=== PATIENT | male | born 1960 | race African-American/Black ===

== ENCOUNTER 2018-06-29 18:52 | Inpatient (IN) | payer MEDICAID ==
[~2018-06-29] VITALS: Ht 172.7 cm; Wt 80.3 kg
[2018-06-30] MEDS ORDERED: LEVETIRACETAM 500MG PREMIX 100 ML IV ONE (03:00)
[2018-06-30] MEDS ORDERED: KETOROLAC 15MG/ML VIAL IV ONE (03:00)
[2018-06-30] MEDS ORDERED: SODIUM CHLORIDE 0.9% 1,000 ML IV ONE (03:00)
[2018-06-30 03:33] LABS: BASOPHILS % 1.6 % (0.0-2.0); EOSINOPHILS % 2.4 % (0.0-5.0); HEMOGLOBIN. 9.5 g/dL (14.0-18.0); LYMPHOCYTES % 57.6 % (20.0-50.0); MEAN CORPUSCULAR HEMOGLOBIN 27.1 pg (28.0-32.0); MEAN CORPUSCULAR VOLUME 85.6 fL (80.0-94.0); MONOCYTES % 10.9 % (2.0-8.0); NEUTROPHILS % 27.5 % (40.0-76.0); PLATELET 148 x1000/uL (130-400); RED CELL DISTRIBUTION WIDTH 22.4 % (11.6-14.6)
[2018-06-30 03:36] LABS: CHLORIDE 101 mEq/L (98-107)
[2018-06-30 03:40] LABS: PARTIAL THROMBOPLASTIN TIME 32.8 sec (23.4-31.0); PROTHROMBIN TIME 10.3 sec (9.1-11.1)
[2018-06-30 12:16] LABS: CLARITY URINE CLEAR (CLEAR); COLOR URINE YELLOW (YELLOW); KETONES URINE NEGATIVE (NEGATIVE); LEUKOCYTE ESTERASE URINE 1+ (NEGATIVE); NITRITE URINE POSITIVE (NEGATIVE); OCCULT BLOOD URINE NEGATIVE (NEGATIVE); PROTEIN URINE NEGATIVE (NEGATIVE); SPECIFIC GRAVITY URINE 1.014 (1.005-1.030)
[2018-06-30] MEDS ORDERED: CEFTRIAXONE 1 G PREMIX 50 ML IV ONE (18:15)
[2018-06-30] MEDS ORDERED: LORAZEPAM 2MG/ML CPJ IV ONE (18:15)
[2018-06-30] MEDS ORDERED: FOLIC ACID 1 MG, THIAMINE HCL 100 MG, MVI, ADULT NO.1 10 ML in DEXTROSE 5% WATER 1,000 ML IV ONE ×4 (18:15)
[2018-06-30] MEDS ORDERED: THIAMINE HCL 100MG TABLET PO NR (18:45)
[2018-06-30] MEDS ORDERED: ONDANSETRON HCL 4MG/2ML INJ IV PRN (18:45)
[2018-06-30] MEDS ORDERED: FOLIC ACID 1 MG, MVI, ADULT NO.1 10 ML in DEXTROSE 5% WATER 1,000 ML IV NR ×3 (18:45)
[2018-06-30] MEDS ORDERED: ACETAMINOPHEN 325MG TABLET PO PRN ×2 (18:45)
[2018-06-30] MEDS ORDERED: CLONIDINE 0.1MG TABLET PO PRN (18:45)
[2018-06-30] MEDS ORDERED: MAGNESIUM/ALUMINUM HYDROXIDE/SIMETHICONE 30ML UDC PO PRN (18:45)
[2018-06-30] MEDS ORDERED: DOCUSATE SODIUM 100MG CAPSULE PO PRN (18:45)
[2018-06-30] MEDS ORDERED: LEVOFLOXACIN 500MG PREMIX 100 ML IV SCH (18:45)
[2018-06-30 23:05] VITALS: BP 130/69
[2018-07-01] MEDS: DEXT 5%/0.45% NACL 1000ML 1,000 ML IV SCH ×2 (01:39→17:44)
[2018-07-01] MEDS ORDERED: ACET-2708 PO (03:58)
[2018-07-01 04:00] VITALS: BP 132/81
[2018-07-01] MEDS: LEVOFLOXACIN 500MG PREMIX 100 ML IV SCH (06:00)
[2018-07-01] MEDS: AMLODIPINE 10MG TABLET PO SCH (08:24)
[2018-07-01] MEDS: THIAMINE HCL 100MG TABLET PO SCH (08:24)
[2018-07-01] MEDS: FOLIC ACID 1MG TABLET PO SCH (08:24)
[2018-07-01] MEDS: MULTIVITAMINS,THER W-MINERALS TABLET PO SCH (08:24)
[2018-07-01 12:00] VITALS: BP 128/79
[2018-07-01] MEDS: CHLORDIAZEPOXIDE 5 MG CAPSULE PO SCH ×2 (14:35→21:02)
[2018-07-01 15:06] LABS: BASOPHILS % 0.3 % (0.0-2.0); EOSINOPHILS % 0.1 % (0.0-5.0); HEMATOCRIT. 28.1 % (42.0-52.0); HEMOGLOBIN. 9.3 g/dL (14.0-18.0); LYMPHOCYTES % 36.4 % (20.0-50.0); MEAN CORPUSCULAR HEMOGLOBIN 27.7 pg (28.0-32.0); MEAN CORPUSCULAR VOLUME 83.3 fL (80.0-94.0); MEAN PLATELET VOLUME 8.3 fl (7.4-10.4); MONOCYTES % 12.4 % (2.0-8.0); NEUTROPHILS % 50.8 % (40.0-76.0); PLATELET 98 x1000/uL (130-400); RED BLOOD CELL COUNT 3.37 mill/uL (4.7-6.1); RED CELL DISTRIBUTION WIDTH 22.6 % (11.6-14.6)
[2018-07-01 15:33] LABS: CHLORIDE 99 mEq/L (98-107)
[2018-07-01 15:59] LABS: PLATELET ESTIMATE DECREASED
[2018-07-01 16:00] VITALS: BP 131/68
[2018-07-01] MEDS ORDERED: POTASSIUM CHLORIDE 20MEQ TABLET SR PO NR (19:11)
[2018-07-01 20:00] VITALS: BP 97/64
[2018-07-01] MEDS: LORAZEPAM 2MG/ML CPJ IV PRN (20:29)
[2018-07-02] MEDS: LORAZEPAM 2MG/ML CPJ IV PRN ×4 (00:23→19:33)
[2018-07-02 00:49] VITALS: BP 116/62
[2018-07-02] MEDS: DEXT 5%/0.45% NACL 1000ML 1,000 ML IV SCH ×2 (01:32→20:07)
[2018-07-02 04:00] VITALS: BP 120/66
[2018-07-02] MEDS: CHLORDIAZEPOXIDE 5 MG CAPSULE PO SCH ×4 (05:30→21:00)
[2018-07-02] MEDS: LEVOFLOXACIN 500MG PREMIX 100 ML IV SCH (05:34)
[2018-07-02] MEDS ORDERED: POTASSIUM CHLORIDE 20MEQ TABLET SR PO SCH (09:45)
[2018-07-02] MEDS: AMLODIPINE 10MG TABLET PO SCH (09:52)
[2018-07-02] MEDS: MULTIVITAMINS,THER W-MINERALS TABLET PO SCH (09:53)
[2018-07-02] MEDS: THIAMINE HCL 100MG TABLET PO SCH (09:53)
[2018-07-02] MEDS: FOLIC ACID 1MG TABLET PO SCH (09:53)
[2018-07-02 12:00] VITALS: BP 121/73
[2018-07-02 16:00] VITALS: BP 118/79
[2018-07-02 20:00] VITALS: BP 127/83
[2018-07-02] MEDS: HALOPERIDOL LACTATE 5MG/ML VIAL IM PRN (20:07)
[2018-07-02 22:42] VITALS: BP 127/83
[2018-07-03] VITALS: BP 120/73
[2018-07-03] MEDS: LORAZEPAM 2MG/ML CPJ IV PRN (00:12)
[2018-07-03 04:00] VITALS: BP 124/85
[2018-07-03] MEDS: LEVOFLOXACIN 500MG PREMIX 100 ML IV SCH (05:20)
[2018-07-03] MEDS: CHLORDIAZEPOXIDE 5 MG CAPSULE PO SCH ×3 (06:00→21:41)
[2018-07-03 08:00] VITALS: BP 124/83
[2018-07-03] MEDS: FOLIC ACID 1MG TABLET PO SCH (09:48)
[2018-07-03] MEDS: THIAMINE HCL 100MG TABLET PO SCH (09:49)
[2018-07-03] MEDS: MULTIVITAMINS,THER W-MINERALS TABLET PO SCH (09:49)
[2018-07-03] MEDS: AMLODIPINE 10MG TABLET PO SCH (09:49)
[2018-07-03 12:00] VITALS: BP 118/74
[2018-07-03] MEDS: DEXT 5%/0.45% NACL 1000ML 1,000 ML IV SCH (12:00)
[2018-07-03 16:00] VITALS: BP 116/51
[2018-07-03 20:00] VITALS: BP 100/68
[2018-07-04] VITALS: BP 110/65
[2018-07-04] MEDS: LEVOFLOXACIN 500MG PREMIX 100 ML IV SCH (05:28)
[2018-07-04] MEDS: CHLORDIAZEPOXIDE 5 MG CAPSULE PO SCH ×3 (05:49→22:16)
[2018-07-04 08:00] VITALS: BP 121/78
[2018-07-04] MEDS: THIAMINE HCL 100MG TABLET PO SCH (09:38)
[2018-07-04] MEDS: AMLODIPINE 10MG TABLET PO SCH (09:39)
[2018-07-04] MEDS: MULTIVITAMINS,THER W-MINERALS TABLET PO SCH (09:39)
[2018-07-04] MEDS: FOLIC ACID 1MG TABLET PO SCH (09:39)
[2018-07-04] MEDS: DEXT 5%/0.45% NACL 1000ML 1,000 ML IV SCH ×2 (09:39→23:20)
[2018-07-04 12:00] VITALS: BP 120/63
[2018-07-04] MEDS: LORAZEPAM 2MG/ML CPJ IV PRN (15:00)
[2018-07-04 16:00] VITALS: BP 104/63
[2018-07-04] MEDS: HALOPERIDOL LACTATE 5MG/ML VIAL IM PRN (16:43)
[2018-07-04] MEDS ORDERED: HALOPERIDOL LACTATE 5MG/ML VIAL IM PRN (17:45)
[2018-07-04] MEDS ORDERED: LORAZEPAM 2MG/ML CPJ IV PRN (17:45)
[2018-07-05] VITALS: BP 147/77
[2018-07-05] MEDS: LEVOFLOXACIN 500MG TABLET PO SCH (06:40)
[2018-07-05] MEDS: LORAZEPAM 2MG/ML CPJ IV PRN ×2 (06:40→11:41)
[2018-07-05] MEDS: CHLORDIAZEPOXIDE 5 MG CAPSULE PO SCH ×3 (06:40→21:28)
[2018-07-05] MEDS: DEXT 5%/0.45% NACL 1000ML 1,000 ML IV SCH (07:14)
[2018-07-05 08:00] VITALS: BP 118/73
[2018-07-05] MEDS: THIAMINE HCL 100MG TABLET PO SCH (09:37)
[2018-07-05] MEDS: AMLODIPINE 10MG TABLET PO SCH (09:37)
[2018-07-05] MEDS: MULTIVITAMINS,THER W-MINERALS TABLET PO SCH (09:37)
[2018-07-05] MEDS: FOLIC ACID 1MG TABLET PO SCH (09:37)
[2018-07-05 12:00] VITALS: BP 108/75
[2018-07-05 16:00] VITALS: BP 110/79
[2018-07-05 20:00] VITALS: BP 112/72
[2018-07-06] VITALS: BP 118/79
[2018-07-06] MEDS: DEXT 5%/0.45% NACL 1000ML 1,000 ML IV SCH ×2 (02:00→15:20)
[2018-07-06 04:00] VITALS: BP 103/63
[2018-07-06] MEDS: CHLORDIAZEPOXIDE 5 MG CAPSULE PO SCH ×3 (05:57→22:32)
[2018-07-06] MEDS: LEVOFLOXACIN 500MG TABLET PO SCH (05:57)
[2018-07-06 08:00] VITALS: BP 120/79
[2018-07-06] MEDS: FOLIC ACID 1MG TABLET PO SCH (11:49)
[2018-07-06] MEDS: MULTIVITAMINS,THER W-MINERALS TABLET PO SCH (11:49)
[2018-07-06] MEDS: AMLODIPINE 10MG TABLET PO SCH (11:49)
[2018-07-06] MEDS: THIAMINE HCL 100MG TABLET PO SCH (11:49)
[2018-07-06 12:00] VITALS: BP 98/53
[2018-07-06 16:00] VITALS: BP 120/79
[2018-07-06 20:58] VITALS: BP 110/73
[2018-07-06] MEDS: LORAZEPAM 2MG/ML CPJ IV PRN (22:32)
[2018-07-07] VITALS: BP 135/81
[2018-07-07] MEDS: CHLORDIAZEPOXIDE 5 MG CAPSULE PO SCH ×3 (06:20→22:33)
[2018-07-07] MEDS: LEVOFLOXACIN 500MG TABLET PO SCH (06:20)
[2018-07-07] MEDS: DEXT 5%/0.45% NACL 1000ML 1,000 ML IV SCH ×2 (06:24→18:00)
[2018-07-07 08:00] VITALS: BP 94/66
[2018-07-07] MEDS: MULTIVITAMINS,THER W-MINERALS TABLET PO SCH (09:00)
[2018-07-07] MEDS: FOLIC ACID 1MG TABLET PO SCH (09:00)
[2018-07-07] MEDS: THIAMINE HCL 100MG TABLET PO SCH (09:00)
[2018-07-07] MEDS: AMLODIPINE 10MG TABLET PO SCH (09:00)
[2018-07-07 12:00] VITALS: BP 106/65
[2018-07-07 16:00] VITALS: BP 126/66
[2018-07-07 20:00] VITALS: BP 114/60
[2018-07-08] VITALS: BP 118/68
[2018-07-08 04:00] VITALS: BP 125/74
[2018-07-08] MEDS: LEVOFLOXACIN 500MG TABLET PO SCH (06:17)
[2018-07-08] MEDS: CHLORDIAZEPOXIDE 5 MG CAPSULE PO SCH ×3 (06:17→22:43)
[2018-07-08] MEDS: DEXT 5%/0.45% NACL 1000ML 1,000 ML IV SCH ×2 (07:20→20:40)
[2018-07-08] MEDS: FOLIC ACID 1MG TABLET PO SCH (08:20)
[2018-07-08] MEDS: MULTIVITAMINS,THER W-MINERALS TABLET PO SCH (08:20)
[2018-07-08] MEDS: THIAMINE HCL 100MG TABLET PO SCH (08:20)
[2018-07-08] MEDS: AMLODIPINE 10MG TABLET PO SCH (08:20)
[2018-07-08 12:00] VITALS: BP 99/56
[2018-07-08 16:00] VITALS: BP 101/61
[2018-07-08 20:00] VITALS: BP 100/61
[2018-07-09] VITALS: BP 136/81
[2018-07-09 04:00] VITALS: BP 128/70
[2018-07-09] MEDS: CHLORDIAZEPOXIDE 5 MG CAPSULE PO SCH (05:51)
[2018-07-09] MEDS: THIAMINE HCL 100MG TABLET PO SCH (08:55)
[2018-07-09] MEDS: MULTIVITAMINS,THER W-MINERALS TABLET PO SCH (08:55)
[2018-07-09] MEDS: FOLIC ACID 1MG TABLET PO SCH (08:55)
[2018-07-09] MEDS: AMLODIPINE 10MG TABLET PO SCH (08:56)
[2018-07-09] MEDS: DEXT 5%/0.45% NACL 1000ML 1,000 ML IV SCH (10:00)
[2018-07-09 12:00] VITALS: BP 112/69
[2018-07-09 13:27] VITALS: BP 130/65
== END 2018-07-09 13:55 | disposition home or self-care (01) | DRG 53 ==
LOC: ER 19:04 → 7WST 06-30 18:39 → EDBEDREQTM 06-30 18:42 → EDBEDREQ 06-30 18:42 → ENRESERV 06-30 20:15
PROVIDERS: ADMIT Hospitalist; ATTEND Hospitalist
DX: G40.909 Epilepsy, unspecified, not intractable, without status epilepticus (principal); F10.239 Alcohol dependence with withdrawal, unspecified; N39.0 Urinary tract infection, site not specified; F17.210 Nicotine dependence, cigarettes, uncomplicated; Z59.0 Homelessness; Z71.6 Tobacco abuse counseling; Z79.899 Other long term (current) drug therapy
CPT/HCPCS: 36415; 71045; 82962; 84484; 87077; 87186; 93005; 93970; 96365; 96367; 96375; 97116; 97162; 97166; 99284; 99285; C1893; G0482; J0696; J1630; J1885; J1953; J1956; J2060; J3411; J3490; J7030; J7070

== ENCOUNTER 2022-09-30 16:13 | Inpatient (IN) | payer MEDICAID ==
[~2022-09-30] VITALS: Ht 177.8 cm; Wt 86.2 kg
[~2022-09-30 16:13] MED LIST: ACET-2708 PO
[2022-09-30 21:25] LABS: CHLORIDE 111 mEq/L (98-107)
[2022-09-30 21:27] LABS: BASOPHILS % 0.5 % (0.0-2.0); EOSINOPHILS % 2.4 % (0.0-5.0); HEMATOCRIT. 29.7 % (42.0-52.0); HEMOGLOBIN. 9.4 g/dL (14.0-18.0); LYMPHOCYTES % 12.3 % (20.0-50.0); MEAN CORPUSCULAR HEMOGLOBIN 29.7 pg (28.0-32.0); MEAN PLATELET VOLUME 10.4 fl (7.4-10.4); MONOCYTES % 4.3 % (2.0-8.0); NEUTROPHILS % 80.5 % (40.0-76.0); PLATELET 82 x1000/uL (130-400); RED BLOOD CELL COUNT 3.16 mill/uL (4.7-6.1); RED CELL DISTRIBUTION WIDTH 22.4 % (11.6-14.6)
[2022-09-30 21:36] LABS: ETHANOL BLOOD < 10 mg/dL
[2022-09-30 21:51] LABS: PLATELET ESTIMATE DECREASED
[2022-09-30] MEDS ORDERED: DEXTROSE 50% WATER 50ML SYRINGE IV ONE (22:15)
[2022-09-30] MEDS ORDERED: SODIUM CHLORIDE 0.9% 1,000 ML IV ONE (22:15)
[2022-09-30] MEDS ORDERED: METHYLPREDNISOLONE SOD SUCC 125 MG/2 ML VIAL IV ONE (22:45)
[2022-09-30] MEDS ORDERED: IPRATROPIUM/ALBUTEROL 0.5-3(2.5)MG/3ML NEB HHN ONE (22:45)
[2022-09-30] MEDS ORDERED: MORPHINE SULFATE 2 MG/ML CPJ (NOT FOR IM USE) IV ONE (23:00)
[2022-09-30] MEDS ORDERED: KETOROLAC 30MG/ML VIAL IV ONE (23:00)
[2022-09-30] MEDS ORDERED: AMOXICILLIN/POTASSIUM CLAVULANATE 875/125MG TAB PO ONE (23:15)
[2022-09-30] MEDS ORDERED: AZITHROMYCIN 500 MG TABLET PO ONE (23:15)
[2022-09-30 23:44] LABS: CLARITY URINE CLOUDY (CLEAR); COLOR URINE DARK YELLOW (YELLOW); KETONES URINE TRACE (NEGATIVE); LEUKOCYTE ESTERASE URINE 1+ (NEGATIVE); NITRITE URINE POSITIVE (NEGATIVE); OCCULT BLOOD URINE NEGATIVE (NEGATIVE); PROTEIN URINE 1+ (NEGATIVE); SPECIFIC GRAVITY URINE 1.022 (1.005-1.030)
[2022-09-30 23:53] LABS: *AMPHETAMINES SCREEN URINE NEGATIVE (NEGATIVE); *BARBITURATES SCREEN URINE NEGATIVE (NEGATIVE); *BENZODIAZEPINES SCREEN URINE NEGATIVE (NEGATIVE); *COCAINE SCREEN URINE NEGATIVE (NEGATIVE); CANNABINOID URINE SCREEN NEGATIVE (NEGATIVE); METHADONE URINE SCREEN NEGATIVE (NEGATIVE); OPIATES URINE SCREEN NEGATIVE (NEGATIVE); PHENCYCLIDINE URINE SCREEN NEGATIVE (NEGATIVE)
[2022-10-01] VITALS (69 sets, daily range): BP systolic 39–204; BP diastolic 25–132
[2022-10-01] MEDS ORDERED: CEFTRIAXONE 1GM PREMIX 50 ML IV ONE (00:15)
[2022-10-01] MEDS ORDERED: SODIUM CHLORIDE 0.9% 1,000 ML IV ONE (01:30)
[2022-10-01 01:34] LABS: CREATINE KINASE 562 IU/L (39-308)
[2022-10-01] MEDS ORDERED: NOREPINEPHRINE 8MG/250ML PMX 242 ML IV PRN (02:00)
[2022-10-01 07:41] LABS: BG BASE EXCESS -11.9 mmol/L (-2.0-2.0); BG CARBOXYHEMOGLOBIN 0.4 % (0.5-1.5); BG DEOXYHEMOGLOBIN 26.2 % (0.0-5.0); BG FRACTION INSPIRED OXYGEN 36; BG HCO3 ACT 16.4 mmol/L (22.0-26.0); BG METHEMOGLOBIN 0.3 % (0.0-1.5); BG OXYGEN SATURATION 73.6 % (92.0-98.5); BG OXYHEMOGLOBIN 73.1 % (94.0-97.0); BG PCO2 47.9 mmHg (35.0-45.0); BG PH 7.153 (7.350-7.450); BG PO2 49.8 mmHg (75.0-100.0); BG SAMPLE SITE RIGHT RADIAL; BG TOTAL HEMOGLOBIN 10.3 g/dL (12.0-18.0); BG VENT MODE NASAL CANNULA
[2022-10-01] MEDS: DOPAMINE 800MG PREMIX (DOUBLE) 250 ML IV PRN (08:24)
[2022-10-01] MEDS ORDERED: FENTANYL CITRATE/PF 2,500 MCG in SODIUM CHLORIDE 0.9% 200 ML IV PRN (08:30)
[2022-10-01] MEDS: NOREPINEPHRINE 8 MG in DEXT 5% WATER 242 ML IV PRN (08:43)
[2022-10-01] MEDS: FENTANYL 2500MCG/250ML PMX 250 ML IV PRN (08:43)
[2022-10-01] MEDS ORDERED: SODIUM CHLORIDE 0.45% 1,000 ML IV SCH (09:15)
[2022-10-01] MEDS ORDERED: CEFEPIME 1,000 MG in DEXTROSE 5% WATER 50 ML IV SCH (09:15)
[2022-10-01 09:27] LABS: BG BASE EXCESS -12.1 mmol/L (-2.0-2.0); BG CARBOXYHEMOGLOBIN 0.1 % (0.5-1.5); BG DEOXYHEMOGLOBIN 0.3 % (0.0-5.0); BG FRACTION INSPIRED OXYGEN 100; BG HCO3 ACT 16.4 mmol/L (22.0-26.0); BG METHEMOGLOBIN 0.3 % (0.0-1.5); BG OXYGEN SATURATION 99.7 % (92.0-98.5); BG OXYHEMOGLOBIN 99.3 % (94.0-97.0); BG PCO2 48.9 mmHg (35.0-45.0); BG PH 7.144 (7.350-7.450); BG PO2 353.2 mmHg (75.0-100.0); BG SAMPLE SITE RIGHT RADIAL; BG TOTAL HEMOGLOBIN 10.1 g/dL (12.0-18.0); BG VENT MODE VENT - AC
[2022-10-01] MEDS ORDERED: IPRATROPIUM/ALBUTEROL 0.5-3(2.5)MG/3ML NEB HHN PRN (09:30)
[2022-10-01] MEDS ORDERED: CLONIDINE 0.1MG TABLET PO PRN (09:30)
[2022-10-01] MEDS ORDERED: ACETAMINOPHEN 650MG/20.3ML UDC GT PRN (09:30)
[2022-10-01] MEDS ORDERED: ONDANSETRON HCL 4MG/2ML INJ IV PRN (09:30)
[2022-10-01] MEDS: PANTOPRAZOLE SODIUM 40 MG/VIAL IV SCH (09:30)
[2022-10-01] MEDS ORDERED: SODIUM CHLORIDE 0.9% 1,000 ML IV SCH (09:30)
[2022-10-01 09:59] LABS: INR 1.2; PROTHROMBIN TIME 12.5 sec (9.6-11.0)
[2022-10-01 10:02] LABS: CHLORIDE 111 mEq/L (98-107); HEMATOCRIT. 28.6 % (42.0-52.0); HEMOGLOBIN. 9.1 g/dL (14.0-18.0); MEAN CORPUSCULAR HEMOGLOBIN 29.3 pg (28.0-32.0); MEAN CORPUSCULAR VOLUME 92.3 fL (80.0-94.0); MEAN PLATELET VOLUME 11.1 fl (7.4-10.4); PLATELET 89 x1000/uL (130-400)
[2022-10-01 10:17] LABS: AMYLASE 145 IU/L (25-115)
[2022-10-01 10:46] LABS: NUCLEATED RED BLOOD CELLS 2 /100 WBC
[2022-10-01 10:47] LABS: PLATELET ESTIMATE DECREASED
[2022-10-01] MEDS ORDERED: SODIUM BICARBONATE 50 MEQ in SODIUM CHLORIDE 0.45% 1,000 ML IV SCH (11:00)
[2022-10-01] MEDS: METRONIDAZOLE 500 MG PREMIX 100 ML IV SCH ×2 (11:00→18:16)
[2022-10-01] MEDS: CEFEPIME 2,000 MG in DEXT 5% WATER 100 ML IV SCH ×2 (11:00→18:15)
[2022-10-01] MEDS: THIAMINE HCL 100 MG in SODIUM CHLORIDE 0.9% 49 ML IV SCH (12:30)
[2022-10-01] MEDS ORDERED: PERMETHRIN 5% CREAM 60GM TOP SCH (12:30)
[2022-10-01] MEDS ORDERED: SODIUM BICARBONATE 8.4% 1 MEQ/ML 50ML SYR IV NR (12:45)
[2022-10-01] MEDS: BLOOD SUGAR DIAGNOSTIC STRIP TEST SCH ×3 (12:50→21:00)
[2022-10-01] MEDS: SODIUM BICARBONATE 150 MEQ in DEXTROSE 5% WATER 1,000 ML IV SCH (14:10)
[2022-10-01] MEDS: FOLIC ACID 1MG TABLET PO SCH (14:11)
[2022-10-01] MEDS: MULTIVITAMINS,THER W-MINERALS TABLET PO SCH (14:11)
[2022-10-01] MEDS: INSULIN LISPRO 100 UNITS/ML SUBCUT SCH ×3 (14:23→21:54)
[2022-10-01] MEDS: IPRATROPIUM/ALBUTEROL 0.5-3(2.5)MG/3ML NEB HHN SCH ×2 (14:38→19:45)
[2022-10-01 15:07] LABS: BG BASE EXCESS -7.6 mmol/L (-2.0-2.0); BG CARBOXYHEMOGLOBIN 0.9 % (0.5-1.5); BG DEOXYHEMOGLOBIN 4.9 % (0.0-5.0); BG HCO3 ACT 18.8 mmol/L (22.0-26.0); BG METHEMOGLOBIN 0.2 % (0.0-1.5); BG PCO2 41.5 mmHg (35.0-45.0); BG PH 7.273 (7.350-7.450); BG PO2 85.7 mmHg (75.0-100.0); BG SAMPLE SITE LEFT RADIAL; BG TOTAL HEMOGLOBIN 10.8 g/dL (12.0-18.0); BG VENT MODE VENT - AC
[2022-10-01] MEDS ORDERED: LEVETIRACETAM 500 MG in SODIUM CHLORIDE 0.9% 100 ML IV SCH (15:30)
[2022-10-01 16:54] LABS: FERRITIN 153 ng/mL (22-322)
[2022-10-01 16:54] LABS: T4 FREE 0.65 ng/dL (0.76-1.46)
[2022-10-01 17:05] LABS: HEPATITIS B SURFACE ANTIGEN NEGATIVE
[2022-10-01 17:07] LABS: VITAMIN B12 SERUM > 2000.0 pg/mL (211-911)
[2022-10-01] MEDS: LEVETIRACETAM 500MG PREMIX 100 ML IV SCH (18:16)
[2022-10-02] VITALS (92 sets, daily range): BP systolic 74–137; BP diastolic 43–101
[2022-10-02] MEDS: IPRATROPIUM/ALBUTEROL 0.5-3(2.5)MG/3ML NEB HHN SCH ×4 (01:55→21:08)
[2022-10-02] MEDS: SODIUM BICARBONATE 150 MEQ in DEXTROSE 5% WATER 1,000 ML IV SCH (01:58)
[2022-10-02] MEDS: METRONIDAZOLE 500 MG PREMIX 100 ML IV SCH ×3 (02:29→18:28)
[2022-10-02] MEDS: CEFEPIME 2,000 MG in DEXT 5% WATER 100 ML IV SCH ×3 (02:30→18:28)
[2022-10-02] MEDS: LEVETIRACETAM 500MG PREMIX 100 ML IV SCH ×2 (04:23→16:04)
[2022-10-02 05:40] LABS: CHLORIDE 109 mEq/L (98-107)
[2022-10-02 06:02] LABS: HEMATOCRIT. 25.9 % (42.0-52.0); HEMOGLOBIN. 8.4 g/dL (14.0-18.0); MEAN CORPUSCULAR HEMOGLOBIN 29.1 pg (28.0-32.0); MEAN CORPUSCULAR VOLUME 89.5 fL (80.0-94.0); MEAN PLATELET VOLUME 10.4 fl (7.4-10.4); PLATELET 58 x1000/uL (130-400); RED CELL DISTRIBUTION WIDTH 21.8 % (11.6-14.6)
[2022-10-02] MEDS ORDERED: POTASSIUM CHLORIDE 20MEQ/PACKET PO NR (08:15)
[2022-10-02] MEDS: INSULIN LISPRO 100 UNITS/ML SUBCUT SCH ×4 (08:20→21:00)
[2022-10-02] MEDS: BLOOD SUGAR DIAGNOSTIC STRIP TEST SCH ×4 (08:24→21:00)
[2022-10-02] MEDS: PANTOPRAZOLE SODIUM 40 MG/VIAL IV SCH (08:25)
[2022-10-02] MEDS: FOLIC ACID 1MG TABLET PO SCH (08:25)
[2022-10-02] MEDS: MULTIVITAMINS,THER W-MINERALS TABLET PO SCH (08:25)
[2022-10-02] MEDS: DEXT 5%/0.45% NACL 1000ML 1,000 ML IV SCH (08:26)
[2022-10-02] MEDS: THIAMINE HCL 100 MG in SODIUM CHLORIDE 0.9% 49 ML IV SCH (08:28)
[2022-10-02 08:30] LABS: BG BASE EXCESS 4.7 mmol/L (-2.0-2.0); BG CARBOXYHEMOGLOBIN 0.6 % (0.5-1.5); BG DEOXYHEMOGLOBIN 2.5 % (0.0-5.0); BG FRACTION INSPIRED OXYGEN 40; BG HCO3 ACT 29.1 mmol/L (22.0-26.0); BG METHEMOGLOBIN 0.4 % (0.0-1.5); BG OXYGEN SATURATION 97.5 % (92.0-98.5); BG OXYHEMOGLOBIN 96.5 % (94.0-97.0); BG PCO2 42.5 mmHg (35.0-45.0); BG PH 7.453 (7.350-7.450); BG PO2 97.9 mmHg (75.0-100.0); BG SAMPLE SITE RIGHT RADIAL; BG TOTAL HEMOGLOBIN 9.5 g/dL (12.0-18.0); BG VENT MODE VENT - AC
[2022-10-02 10:42] LABS: PHOSPHORUS 3.9 mg/dL (2.5-4.9)
[2022-10-02 11:28] LABS: NUCLEATED RED BLOOD CELLS 1 /100 WBC; PLATELET ESTIMATE DECREASED
[2022-10-02] MEDS: FENTANYL 2500MCG/250ML PMX 250 ML IV PRN (12:27)
[2022-10-02] MEDS: DOXYCYCLINE HYCLATE 100MG CAPSULE PO SCH (16:04)
[2022-10-02] MEDS: NOREPINEPHRINE 8 MG in DEXT 5% WATER 242 ML IV PRN (16:57)
[2022-10-02] MEDS: DOPAMINE 800MG PREMIX (DOUBLE) 250 ML IV PRN (16:58)
[2022-10-03] VITALS (58 sets, daily range): BP systolic 76–138; BP diastolic 22–83
[2022-10-03] MEDS: NOREPINEPHRINE 32 MG in DEXT 5% WATER 218 ML IV PRN ×2 (00:17→23:14)
[2022-10-03] MEDS: DEXT 5%/0.45% NACL 1000ML 1,000 ML IV SCH ×2 (00:17→18:12)
[2022-10-03] MEDS: IPRATROPIUM/ALBUTEROL 0.5-3(2.5)MG/3ML NEB HHN SCH ×4 (01:05→20:46)
[2022-10-03] MEDS: CEFEPIME 2,000 MG in DEXT 5% WATER 100 ML IV SCH ×3 (02:14→19:24)
[2022-10-03] MEDS: METRONIDAZOLE 500 MG PREMIX 100 ML IV SCH ×3 (02:14→19:24)
[2022-10-03] MEDS: LEVETIRACETAM 500MG PREMIX 100 ML IV SCH ×2 (04:24→17:10)
[2022-10-03] MEDS: BLOOD SUGAR DIAGNOSTIC STRIP TEST SCH ×4 (05:28→23:36)
[2022-10-03] MEDS: INSULIN LISPRO 100 UNITS/ML SUBCUT SCH ×4 (05:29→23:35)
[2022-10-03] MEDS: FENTANYL 2500MCG/250ML PMX 250 ML IV PRN (06:24)
[2022-10-03 07:22] LABS: BASOPHILS % 0.4 % (0.0-2.0); EOSINOPHILS % 1.3 % (0.0-5.0); HEMATOCRIT. 23.8 % (42.0-52.0); HEMOGLOBIN. 7.7 g/dL (14.0-18.0); LYMPHOCYTES % 10.5 % (20.0-50.0); MEAN CORPUSCULAR HEMOGLOBIN 29.1 pg (28.0-32.0); MEAN CORPUSCULAR VOLUME 89.7 fL (80.0-94.0); MEAN PLATELET VOLUME 10.8 fl (7.4-10.4); MONOCYTES % 4.4 % (2.0-8.0); NEUTROPHILS % 83.4 % (40.0-76.0); PLATELET 53 x1000/uL (130-400); RED BLOOD CELL COUNT 2.66 mill/uL (4.7-6.1); RED CELL DISTRIBUTION WIDTH 21.9 % (11.6-14.6)
[2022-10-03] MEDS ORDERED: FUROSEMIDE 40MG/4ML VIAL IVP NR (08:00)
[2022-10-03 08:08] LABS: HIV SCREEN 4G Non Reactive (Non Reactive)
[2022-10-03 08:08] LABS: ANTI-NUCLEAR ANTIBODIES DIRECT Negative (Negative)
[2022-10-03 09:07] LABS: BG BASE EXCESS 1.4 mmol/L (-2.0-2.0); BG CARBOXYHEMOGLOBIN 0.8 % (0.5-1.5); BG DEOXYHEMOGLOBIN 2.9 % (0.0-5.0); BG FRACTION INSPIRED OXYGEN 40; BG HCO3 ACT 26.8 mmol/L (22.0-26.0); BG METHEMOGLOBIN 0.3 % (0.0-1.5); BG OXYGEN SATURATION 97.1 % (92.0-98.5); BG PCO2 46.2 mmHg (35.0-45.0); BG PH 7.381 (7.350-7.450); BG PO2 96.5 mmHg (75.0-100.0); BG SAMPLE SITE RIGHT RADIAL; BG TOTAL HEMOGLOBIN 8.2 g/dL (12.0-18.0); BG VENT MODE VENT - AC
[2022-10-03] MEDS: MULTIVITAMINS,THER W-MINERALS TABLET PO SCH (09:11)
[2022-10-03] MEDS: DOXYCYCLINE HYCLATE 100MG CAPSULE PO SCH ×2 (09:11→17:11)
[2022-10-03] MEDS: PANTOT AC/MIN OIL/PET HY-PHL OINT (AQUAPHOR) TOP SCH (09:12)
[2022-10-03] MEDS: FOLIC ACID 1MG TABLET PO SCH (09:12)
[2022-10-03] MEDS: PANTOPRAZOLE SODIUM 40 MG/VIAL IV SCH (09:12)
[2022-10-03] MEDS: THIAMINE HCL 100 MG in SODIUM CHLORIDE 0.9% 49 ML IV SCH (09:12)
[2022-10-03] MEDS ORDERED: VANCOMYCIN 1,750 MG in DEXT 5% WATER 500 ML IV NR (13:00)
[2022-10-04] VITALS (92 sets, daily range): BP systolic 80–138; BP diastolic 42–104
[2022-10-04] MEDS: FENTANYL 2500MCG/250ML PMX 250 ML IV PRN (00:41)
[2022-10-04] MEDS: IPRATROPIUM/ALBUTEROL 0.5-3(2.5)MG/3ML NEB HHN SCH ×4 (02:11→20:08)
[2022-10-04] MEDS: METRONIDAZOLE 500 MG PREMIX 100 ML IV SCH ×3 (02:14→19:33)
[2022-10-04] MEDS: CEFEPIME 2,000 MG in DEXT 5% WATER 100 ML IV SCH ×3 (02:14→19:33)
[2022-10-04] MEDS ORDERED: PROPOFOL 10MG/ML 100ML 100 ML IV PRN (04:15)
[2022-10-04] MEDS: LEVETIRACETAM 500MG PREMIX 100 ML IV SCH ×2 (04:22→16:51)
[2022-10-04] MEDS: BLOOD SUGAR DIAGNOSTIC STRIP TEST SCH ×4 (05:38→23:19)
[2022-10-04] MEDS: INSULIN LISPRO 100 UNITS/ML SUBCUT SCH ×4 (06:00→23:19)
[2022-10-04 06:14] LABS: BASOPHILS % 0.4 % (0.0-2.0); EOSINOPHILS % 3.4 % (0.0-5.0); HEMATOCRIT. 22.2 % (42.0-52.0); HEMOGLOBIN. 7.4 g/dL (14.0-18.0); LYMPHOCYTES % 13.3 % (20.0-50.0); MEAN CORPUSCULAR HEMOGLOBIN 29.6 pg (28.0-32.0); MEAN CORPUSCULAR VOLUME 89.5 fL (80.0-94.0); MEAN PLATELET VOLUME 11.1 fl (7.4-10.4); MONOCYTES % 5.2 % (2.0-8.0); NEUTROPHILS % 77.7 % (40.0-76.0); RED BLOOD CELL COUNT 2.48 mill/uL (4.7-6.1); RED CELL DISTRIBUTION WIDTH 21.7 % (11.6-14.6)
[2022-10-04 06:56] LABS: PHOSPHORUS 3.2 mg/dL (2.5-4.9)
[2022-10-04 07:23] LABS: PLATELET 42 x1000/uL (130-400)
[2022-10-04] MEDS: MULTIVITAMINS,THER W-MINERALS TABLET PO SCH (08:24)
[2022-10-04] MEDS: PANTOT AC/MIN OIL/PET HY-PHL OINT (AQUAPHOR) TOP SCH (08:24)
[2022-10-04] MEDS: PANTOPRAZOLE SODIUM 40 MG/VIAL IV SCH (08:24)
[2022-10-04] MEDS: FOLIC ACID 1MG TABLET PO SCH (08:24)
[2022-10-04] MEDS: DOXYCYCLINE HYCLATE 100MG CAPSULE PO SCH ×2 (08:24→16:51)
[2022-10-04] MEDS: THIAMINE HCL 100 MG in SODIUM CHLORIDE 0.9% 49 ML IV SCH (08:24)
[2022-10-04 08:40] LABS: BG BASE EXCESS 3.2 mmol/L (-2.0-2.0); BG CARBOXYHEMOGLOBIN 1.3 % (0.5-1.5); BG DEOXYHEMOGLOBIN 1.7 % (0.0-5.0); BG FRACTION INSPIRED OXYGEN 35; BG HCO3 ACT 28.1 mmol/L (22.0-26.0); BG METHEMOGLOBIN 0.3 % (0.0-1.5); BG OXYGEN SATURATION 98.3 % (92.0-98.5); BG OXYHEMOGLOBIN 96.7 % (94.0-97.0); BG PCO2 44.7 mmHg (35.0-45.0); BG PH 7.416 (7.350-7.450); BG PO2 109.5 mmHg (75.0-100.0); BG SAMPLE SITE LEFT RADIAL; BG TOTAL HEMOGLOBIN 7.9 g/dL (12.0-18.0); BG TOTAL RESPIRATORY RATE 18 b/min; BG VENT MODE VENT - AC
[2022-10-04] MEDS: LORAZEPAM 2MG/ML CPJ IV PRN (08:45)
[2022-10-04] MEDS: DEXT 5%/0.45% NACL 1000ML 1,000 ML IV SCH (10:44)
[2022-10-04] MEDS ORDERED: BISACODYL 10MG SUPP PR NR (10:45)
[2022-10-04] MEDS ORDERED: LIDOCAINE HCL 1% 10 MG/ML 10ML VIAL ONE (10:46)
[2022-10-04] MEDS: DEXTROSE 50% WATER 50ML SYRINGE IV PRN ×2 (11:56→23:24)
[2022-10-04] MEDS: LACTULOSE 20G/30ML UDC PO SCH ×2 (14:16→21:57)
[2022-10-04 20:40] LABS: D-DIMER 3.59 mg/L FEU (<0.50); INR 1.2; PROTHROMBIN TIME 12.4 sec (9.6-11.0)
[2022-10-05] VITALS (95 sets, daily range): BP systolic 93–123; BP diastolic 49–81
[2022-10-05] MEDS: FENTANYL 2500MCG/250ML PMX 250 ML IV PRN (01:18)
[2022-10-05] MEDS: IPRATROPIUM/ALBUTEROL 0.5-3(2.5)MG/3ML NEB HHN SCH ×4 (01:20→20:51)
[2022-10-05] MEDS: CEFEPIME 2,000 MG in DEXT 5% WATER 100 ML IV SCH ×3 (03:08→18:19)
[2022-10-05] MEDS: METRONIDAZOLE 500 MG PREMIX 100 ML IV SCH ×3 (03:08→18:17)
[2022-10-05] MEDS: DEXT 5%/0.45% NACL 1000ML 1,000 ML IV SCH (03:08)
[2022-10-05] MEDS: BLOOD SUGAR DIAGNOSTIC STRIP TEST SCH ×4 (05:20→23:46)
[2022-10-05] MEDS: LACTULOSE 20G/30ML UDC PO SCH ×3 (05:39→21:59)
[2022-10-05] MEDS: LEVETIRACETAM 500MG PREMIX 100 ML IV SCH ×2 (05:39→17:05)
[2022-10-05] MEDS: INSULIN LISPRO 100 UNITS/ML SUBCUT SCH ×4 (06:00→23:46)
[2022-10-05 06:02] LABS: BASOPHILS % 0.5 % (0.0-2.0); EOSINOPHILS % 5.7 % (0.0-5.0); LYMPHOCYTES % 13.5 % (20.0-50.0); MEAN CORPUSCULAR HEMOGLOBIN 29.6 pg (28.0-32.0); MEAN CORPUSCULAR VOLUME 88.9 fL (80.0-94.0); MEAN PLATELET VOLUME 11.7 fl (7.4-10.4); MONOCYTES % 6.6 % (2.0-8.0); NEUTROPHILS % 73.7 % (40.0-76.0); RED BLOOD CELL COUNT 2.26 mill/uL (4.7-6.1); RED CELL DISTRIBUTION WIDTH 21.1 % (11.6-14.6)
[2022-10-05 06:15] LABS: PHOSPHORUS 3.3 mg/dL (2.5-4.9)
[2022-10-05 06:55] LABS: HEMOGLOBIN. 6.7 g/dL (14.0-18.0)
[2022-10-05 06:56] LABS: HEMATOCRIT. 20.1 % (42.0-52.0); PLATELET 32 x1000/uL (130-400)
[2022-10-05 08:36] LABS: BG BASE EXCESS 5.2 mmol/L (-2.0-2.0); BG CARBOXYHEMOGLOBIN 1.7 % (0.5-1.5); BG DEOXYHEMOGLOBIN 1.9 % (0.0-5.0); BG FRACTION INSPIRED OXYGEN 35; BG HCO3 ACT 30.3 mmol/L (22.0-26.0); BG METHEMOGLOBIN 0.7 % (0.0-1.5); BG OXYGEN SATURATION 98.1 % (92.0-98.5); BG OXYHEMOGLOBIN 95.7 % (94.0-97.0); BG PCO2 48.7 mmHg (35.0-45.0); BG PH 7.412 (7.350-7.450); BG PO2 106.6 mmHg (75.0-100.0); BG SAMPLE SITE RIGHT RADIAL; BG TOTAL HEMOGLOBIN 6.8 g/dL (12.0-18.0); BG VENT MODE VENT - AC
[2022-10-05] MEDS: MULTIVITAMINS,THER W-MINERALS TABLET PO SCH (09:25)
[2022-10-05] MEDS: DOXYCYCLINE HYCLATE 100MG CAPSULE PO SCH ×2 (09:25→17:05)
[2022-10-05] MEDS: FOLIC ACID 1MG TABLET PO SCH (09:25)
[2022-10-05] MEDS: PANTOPRAZOLE SODIUM 40 MG/VIAL IV SCH ×2 (09:25→21:10)
[2022-10-05] MEDS: THIAMINE HCL 100 MG in SODIUM CHLORIDE 0.9% 49 ML IV SCH (09:25)
[2022-10-05] MEDS: PANTOT AC/MIN OIL/PET HY-PHL OINT (AQUAPHOR) TOP SCH (09:26)
[2022-10-05] MEDS ORDERED: SODIUM CHLORIDE 0.45% 1,000 ML IV ONE (12:00)
[2022-10-05 18:53] LABS: HEMOGLOBIN 6.4 g/dL (14.0-18.0)
[2022-10-05 18:54] LABS: HEMATOCRIT 19.6 % (42.0-52.0)
[2022-10-05 22:17] LABS: HEMATOCRIT 21.2 % (42.0-52.0)
[2022-10-06] VITALS (69 sets, daily range): BP systolic 83–121; BP diastolic 52–89
[2022-10-06 00:53] LABS: HEMOGLOBIN 7.3 g/dL (14.0-18.0)
[2022-10-06] MEDS: CEFEPIME 2,000 MG in DEXT 5% WATER 100 ML IV SCH ×3 (02:11→19:00)
[2022-10-06] MEDS: IPRATROPIUM/ALBUTEROL 0.5-3(2.5)MG/3ML NEB HHN SCH ×3 (02:11→14:19)
[2022-10-06] MEDS: METRONIDAZOLE 500 MG PREMIX 100 ML IV SCH ×3 (02:11→19:00)
[2022-10-06] MEDS: FENTANYL 2500MCG/250ML PMX 250 ML IV PRN (02:12)
[2022-10-06 05:21] LABS: BASOPHILS % 0.4 % (0.0-2.0); EOSINOPHILS % 5.7 % (0.0-5.0); HEMATOCRIT. 21.6 % (42.0-52.0); HEMOGLOBIN. 7.2 g/dL (14.0-18.0); LYMPHOCYTES % 10.2 % (20.0-50.0); MEAN CORPUSCULAR HEMOGLOBIN 29.5 pg (28.0-32.0); MEAN PLATELET VOLUME 10.4 fl (7.4-10.4); MONOCYTES % 7.6 % (2.0-8.0); NEUTROPHILS % 76.1 % (40.0-76.0); RED BLOOD CELL COUNT 2.42 mill/uL (4.7-6.1); RED CELL DISTRIBUTION WIDTH 21.1 % (11.6-14.6)
[2022-10-06 05:34] LABS: PLATELET 29 x1000/uL (130-400)
[2022-10-06 05:35] LABS: CHLORIDE 108 mEq/L (98-107)
[2022-10-06] MEDS: BLOOD SUGAR DIAGNOSTIC STRIP TEST SCH ×3 (05:51→17:31)
[2022-10-06] MEDS: LEVETIRACETAM 500MG PREMIX 100 ML IV SCH ×2 (05:51→17:30)
[2022-10-06] MEDS: LACTULOSE 20G/30ML UDC PO SCH ×2 (05:51→14:09)
[2022-10-06 08:48] LABS: BG BASE EXCESS 1.8 mmol/L (-2.0-2.0); BG CARBOXYHEMOGLOBIN 1.2 % (0.5-1.5); BG DEOXYHEMOGLOBIN 2.2 % (0.0-5.0); BG FRACTION INSPIRED OXYGEN 35; BG HCO3 ACT 27.1 mmol/L (22.0-26.0); BG METHEMOGLOBIN 0.7 % (0.0-1.5); BG OXYGEN SATURATION 97.8 % (92.0-98.5); BG OXYHEMOGLOBIN 95.9 % (94.0-97.0); BG PCO2 46.8 mmHg (35.0-45.0); BG PH 7.381 (7.350-7.450); BG PO2 111.3 mmHg (75.0-100.0); BG SAMPLE SITE RIGHT RADIAL; BG TOTAL HEMOGLOBIN 6.6 g/dL (12.0-18.0); BG VENT MODE VENT - AC
[2022-10-06] MEDS: PANTOT AC/MIN OIL/PET HY-PHL OINT (AQUAPHOR) TOP SCH (08:57)
[2022-10-06] MEDS: FOLIC ACID 1MG TABLET PO SCH (08:57)
[2022-10-06] MEDS: DOXYCYCLINE HYCLATE 100MG CAPSULE PO SCH ×2 (08:57→17:30)
[2022-10-06] MEDS: PANTOPRAZOLE SODIUM 40 MG/VIAL IV SCH ×2 (08:57→21:49)
[2022-10-06] MEDS: MULTIVITAMINS,THER W-MINERALS TABLET PO SCH (08:57)
[2022-10-06] MEDS: INSULIN LISPRO 100 UNITS/ML SUBCUT SCH ×2 (12:00→17:31)
[2022-10-06 12:55] LABS: HEMATOCRIT 21.4 % (42.0-52.0); HEMOGLOBIN 7.1 g/dL (14.0-18.0)
[2022-10-06] MEDS ORDERED: IPRATROPIUM/ALBUTEROL 0.5-3(2.5)MG/3ML NEB ONE (14:14)
[2022-10-06 16:10] LABS: BG CARBOXYHEMOGLOBIN 0.5 % (0.5-1.5); BG DEOXYHEMOGLOBIN 7.7 % (0.0-5.0); BG FRACTION INSPIRED OXYGEN 30; BG HCO3 ACT 26.9 mmol/L (22.0-26.0); BG METHEMOGLOBIN 0.5 % (0.0-1.5); BG OXYGEN SATURATION 92.2 % (92.0-98.5); BG OXYHEMOGLOBIN 91.3 % (94.0-97.0); BG PCO2 43.5 mmHg (35.0-45.0); BG PEEP (cmH2O) 0 cmH2O; BG PH 7.409 (7.350-7.450); BG PO2 62.5 mmHg (75.0-100.0); BG SAMPLE SITE RIGHT RADIAL; BG TOTAL HEMOGLOBIN 8.1 g/dL (12.0-18.0); BG TOTAL RESPIRATORY RATE 14 b/min; BG VENT MODE VENT - CPAP
[2022-10-06] MEDS: DEXTROSE 50% WATER 50ML SYRINGE IV PRN (17:30)
[2022-10-06 20:49] LABS: HEMOGLOBIN 7.8 g/dL (14.0-18.0)
[2022-10-06] MEDS: LORAZEPAM 2MG/ML CPJ IV PRN (21:49)
[2022-10-07] VITALS (59 sets, daily range): BP systolic 82–144; BP diastolic 50–84
[2022-10-07] MEDS: DEXT 5%/0.9% NACL 1,000 ML IV SCH ×2 (00:01→11:15)
[2022-10-07] MEDS ORDERED: LORAZEPAM 2MG/ML CPJ IM PRN (00:45)
[2022-10-07] MEDS ORDERED: DIPHENHYDRAMINE 50MG/ML VIAL IM PRN (00:45)
[2022-10-07] MEDS: BLOOD SUGAR DIAGNOSTIC STRIP TEST SCH ×4 (00:51→17:52)
[2022-10-07 00:54] LABS: HEMATOCRIT 21.3 % (42.0-52.0); HEMOGLOBIN 7.2 g/dL (14.0-18.0)
[2022-10-07] MEDS: IPRATROPIUM/ALBUTEROL 0.5-3(2.5)MG/3ML NEB HHN SCH ×4 (02:53→20:49)
[2022-10-07] MEDS: CEFEPIME 2,000 MG in DEXT 5% WATER 100 ML IV SCH ×3 (03:00→18:07)
[2022-10-07] MEDS: METRONIDAZOLE 500 MG PREMIX 100 ML IV SCH ×3 (03:00→18:08)
[2022-10-07] MEDS: LEVETIRACETAM 500MG PREMIX 100 ML IV SCH ×2 (05:00→17:36)
[2022-10-07 05:32] LABS: BASOPHILS % 0.2 % (0.0-2.0); EOSINOPHILS % 6.9 % (0.0-5.0); INR 1.3; LYMPHOCYTES % 10.8 % (20.0-50.0); MEAN CORPUSCULAR HEMOGLOBIN 29.5 pg (28.0-32.0); MEAN CORPUSCULAR VOLUME 89.4 fL (80.0-94.0); MEAN PLATELET VOLUME 10.7 fl (7.4-10.4); MONOCYTES % 12.1 % (2.0-8.0); PROTHROMBIN TIME 13.3 sec (9.6-11.0); RED BLOOD CELL COUNT 2.33 mill/uL (4.7-6.1); RED CELL DISTRIBUTION WIDTH 21.2 % (11.6-14.6)
[2022-10-07 05:37] LABS: HEMOGLOBIN. 6.9 g/dL (14.0-18.0)
[2022-10-07 05:38] LABS: HEMATOCRIT. 20.8 % (42.0-52.0); PLATELET 29 x1000/uL (130-400)
[2022-10-07 05:43] LABS: CHLORIDE 112 mEq/L (98-107)
[2022-10-07] MEDS: INSULIN LISPRO 100 UNITS/ML SUBCUT SCH ×4 (06:00→17:52)
[2022-10-07] MEDS ORDERED: LIDOCAINE HCL 1% 30ML VIAL (10MG/ML) ONE (08:59)
[2022-10-07] MEDS: FOLIC ACID 1MG TABLET PO SCH (09:00)
[2022-10-07] MEDS: MULTIVITAMINS,THER W-MINERALS TABLET PO SCH (09:00)
[2022-10-07] MEDS: PANTOT AC/MIN OIL/PET HY-PHL OINT (AQUAPHOR) TOP SCH (09:00)
[2022-10-07] MEDS: DOXYCYCLINE HYCLATE 100MG CAPSULE PO SCH ×2 (09:00→17:00)
[2022-10-07 09:02] LABS: BG BASE EXCESS 0.5 mmol/L (-2.0-2.0); BG CARBOXYHEMOGLOBIN 1.4 % (0.5-1.5); BG DEOXYHEMOGLOBIN 2.3 % (0.0-5.0); BG FRACTION INSPIRED OXYGEN 30; BG METHEMOGLOBIN 0.3 % (0.0-1.5); BG OXYGEN SATURATION 97.7 % (92.0-98.5); BG PCO2 39.1 mmHg (35.0-45.0); BG PH 7.423 (7.350-7.450); BG SAMPLE SITE RIGHT RADIAL; BG TOTAL HEMOGLOBIN 7.5 g/dL (12.0-18.0); BG TOTAL RESPIRATORY RATE 17 b/min; BG VENT MODE VENT - AC
[2022-10-07] MEDS: DEXTROSE 50% WATER 50ML SYRINGE IV PRN (11:07)
[2022-10-07] MEDS: PANTOPRAZOLE SODIUM 40 MG/VIAL IV SCH ×2 (11:13→20:56)
[2022-10-07] MEDS: PROPOFOL 10MG/ML 100ML 100 ML IV PRN ×2 (11:20→17:36)
[2022-10-07 13:06] LABS: HEMATOCRIT 19.6 % (42.0-52.0); HEMOGLOBIN 6.4 g/dL (14.0-18.0)
[2022-10-07 19:51] LABS: HEMATOCRIT 21.2 % (42.0-52.0)
[2022-10-07 20:11] LABS: INR 1.3; PROTHROMBIN TIME 13.6 sec (9.6-11.0)
[2022-10-08] VITALS (40 sets, daily range): BP systolic 85–164; BP diastolic 53–127
[2022-10-08] MEDS: PROPOFOL 10MG/ML 100ML 100 ML IV PRN ×3 (01:20→09:39)
[2022-10-08] MEDS: IPRATROPIUM/ALBUTEROL 0.5-3(2.5)MG/3ML NEB HHN SCH ×4 (02:12→20:04)
[2022-10-08] MEDS: METRONIDAZOLE 500 MG PREMIX 100 ML IV SCH ×3 (03:10→18:19)
[2022-10-08] MEDS: CEFEPIME 2,000 MG in DEXT 5% WATER 100 ML IV SCH ×3 (03:10→18:19)
[2022-10-08] MEDS: BLOOD SUGAR DIAGNOSTIC STRIP TEST SCH ×4 (05:19→17:49)
[2022-10-08] MEDS: INSULIN LISPRO 100 UNITS/ML SUBCUT SCH ×4 (05:19→17:49)
[2022-10-08] MEDS: LEVETIRACETAM 500MG PREMIX 100 ML IV SCH ×2 (05:22→17:07)
[2022-10-08 05:58] LABS: BASOPHILS % 0.4 % (0.0-2.0); EOSINOPHILS % 10.2 % (0.0-5.0); HEMATOCRIT. 23.9 % (42.0-52.0); HEMOGLOBIN. 8.4 g/dL (14.0-18.0); LYMPHOCYTES % 15.3 % (20.0-50.0); MEAN CORPUSCULAR HEMOGLOBIN 30.7 pg (28.0-32.0); MEAN CORPUSCULAR VOLUME 87.5 fL (80.0-94.0); MEAN PLATELET VOLUME 10.8 fl (7.4-10.4); MONOCYTES % 14.6 % (2.0-8.0); NEUTROPHILS % 59.5 % (40.0-76.0); RED BLOOD CELL COUNT 2.73 mill/uL (4.7-6.1); RED CELL DISTRIBUTION WIDTH 20.7 % (11.6-14.6)
[2022-10-08 06:31] LABS: CHLORIDE 115 mEq/L (98-107)
[2022-10-08 06:58] LABS: PLATELET 27 x1000/uL (130-400)
[2022-10-08 08:23] LABS: BG BASE EXCESS 1.4 mmol/L (-2.0-2.0); BG DEOXYHEMOGLOBIN 3.2 % (0.0-5.0); BG FRACTION INSPIRED OXYGEN 30; BG HCO3 ACT 26.1 mmol/L (22.0-26.0); BG METHEMOGLOBIN 0.3 % (0.0-1.5); BG OXYGEN SATURATION 96.8 % (92.0-98.5); BG OXYHEMOGLOBIN 96.5 % (94.0-97.0); BG PCO2 41.2 mmHg (35.0-45.0); BG PH 7.419 (7.350-7.450); BG PO2 91.6 mmHg (75.0-100.0); BG SAMPLE SITE LEFT RADIAL; BG TOTAL HEMOGLOBIN 9.3 g/dL (12.0-18.0); BG TOTAL RESPIRATORY RATE 25 b/min; BG VENT MODE VENT - AC
[2022-10-08] MEDS ORDERED: ARIPIPRAZOLE 5MG TABLET PO SCH (09:00)
[2022-10-08 09:27] LABS: D-DIMER 2.3 mg/L FEU (<0.50); INR 1.2; PARTIAL THROMBOPLASTIN TIME 32.3 sec (23.4-31.0); PROTHROMBIN TIME 12.4 sec (9.6-11.0)
[2022-10-08] MEDS: FOLIC ACID 1MG TABLET PO SCH (09:43)
[2022-10-08] MEDS: PANTOPRAZOLE SODIUM 40 MG/VIAL IV SCH ×2 (09:43→20:31)
[2022-10-08] MEDS: MULTIVITAMINS,THER W-MINERALS TABLET PO SCH (09:43)
[2022-10-08] MEDS: FUROSEMIDE 40MG/4ML VIAL IVP SCH (09:43)
[2022-10-08] MEDS: DOXYCYCLINE HYCLATE 100MG CAPSULE PO SCH ×2 (09:43→17:06)
[2022-10-08] MEDS: PANTOT AC/MIN OIL/PET HY-PHL OINT (AQUAPHOR) TOP SCH (10:55)
[2022-10-08 12:38] LABS: BASOPHILS % 0.5 % (0.0-2.0); EOSINOPHILS % 8.3 % (0.0-5.0); HEMATOCRIT. 25.6 % (42.0-52.0); HEMOGLOBIN. 8.8 g/dL (14.0-18.0); LYMPHOCYTES % 12.8 % (20.0-50.0); MEAN CORPUSCULAR HEMOGLOBIN 29.7 pg (28.0-32.0); MEAN CORPUSCULAR VOLUME 86.6 fL (80.0-94.0); MEAN PLATELET VOLUME 10.6 fl (7.4-10.4); MONOCYTES % 12.7 % (2.0-8.0); NEUTROPHILS % 65.7 % (40.0-76.0); RED BLOOD CELL COUNT 2.96 mill/uL (4.7-6.1); RED CELL DISTRIBUTION WIDTH 20.4 % (11.6-14.6)
[2022-10-08 12:42] LABS: PLATELET 31 x1000/uL (130-400)
[2022-10-08 15:34] LABS: BG BASE EXCESS 1.9 mmol/L (-2.0-2.0); BG CARBOXYHEMOGLOBIN 0.2 % (0.5-1.5); BG DEOXYHEMOGLOBIN 3.9 % (0.0-5.0); BG FRACTION INSPIRED OXYGEN 30; BG HCO3 ACT 25.9 mmol/L (22.0-26.0); BG METHEMOGLOBIN 0.2 % (0.0-1.5); BG OXYGEN SATURATION 96.1 % (92.0-98.5); BG OXYHEMOGLOBIN 95.7 % (94.0-97.0); BG PH 7.452 (7.350-7.450); BG PO2 82.3 mmHg (75.0-100.0); BG SAMPLE SITE LEFT RADIAL; BG TOTAL HEMOGLOBIN 9.4 g/dL (12.0-18.0); BG VENT MODE VENT - CPAP
[2022-10-08 19:35] LABS: BASOPHILS % 0.3 % (0.0-2.0); EOSINOPHILS % 7.1 % (0.0-5.0); HEMATOCRIT. 23.6 % (42.0-52.0); LYMPHOCYTES % 14.6 % (20.0-50.0); MEAN CORPUSCULAR HEMOGLOBIN 29.4 pg (28.0-32.0); MEAN CORPUSCULAR VOLUME 87.1 fL (80.0-94.0); MEAN PLATELET VOLUME 11.2 fl (7.4-10.4); MONOCYTES % 12.5 % (2.0-8.0); NEUTROPHILS % 65.5 % (40.0-76.0); RED BLOOD CELL COUNT 2.71 mill/uL (4.7-6.1); RED CELL DISTRIBUTION WIDTH 20.5 % (11.6-14.6)
[2022-10-08 19:53] LABS: PLATELET 30 x1000/uL (130-400)
[2022-10-08 20:30] LABS: PLATELET ESTIMATE MARKEDLY DECREASED
[2022-10-08] MEDS: LORAZEPAM 2MG/ML CPJ IV PRN (22:39)
[2022-10-09] VITALS (45 sets, daily range): BP systolic 84–165; BP diastolic 26–122
[2022-10-09 01:45] LABS: BASOPHILS % 0.5 % (0.0-2.0); EOSINOPHILS % 7.1 % (0.0-5.0); HEMATOCRIT. 26.4 % (42.0-52.0); HEMOGLOBIN. 8.8 g/dL (14.0-18.0); LYMPHOCYTES % 13.6 % (20.0-50.0); MEAN CORPUSCULAR HEMOGLOBIN 29.3 pg (28.0-32.0); MEAN CORPUSCULAR VOLUME 87.5 fL (80.0-94.0); MEAN PLATELET VOLUME 10.7 fl (7.4-10.4); MONOCYTES % 13.1 % (2.0-8.0); NEUTROPHILS % 65.7 % (40.0-76.0); RED BLOOD CELL COUNT 3.02 mill/uL (4.7-6.1); RED CELL DISTRIBUTION WIDTH 20.2 % (11.6-14.6)
[2022-10-09] MEDS: IPRATROPIUM/ALBUTEROL 0.5-3(2.5)MG/3ML NEB HHN SCH ×4 (01:57→21:07)
[2022-10-09 02:00] LABS: PLATELET 31 x1000/uL (130-400)
[2022-10-09] MEDS: CEFEPIME 2,000 MG in DEXT 5% WATER 100 ML IV SCH ×3 (03:14→18:06)
[2022-10-09] MEDS: METRONIDAZOLE 500 MG PREMIX 100 ML IV SCH ×3 (03:14→18:06)
[2022-10-09] MEDS: LEVETIRACETAM 500MG PREMIX 100 ML IV SCH ×2 (05:24→16:53)
[2022-10-09] MEDS: LORAZEPAM 2MG/ML CPJ IV PRN (05:49)
[2022-10-09] MEDS: BLOOD SUGAR DIAGNOSTIC STRIP TEST SCH ×4 (05:53→18:04)
[2022-10-09] MEDS: INSULIN LISPRO 100 UNITS/ML SUBCUT SCH ×4 (05:53→18:00)
[2022-10-09 06:26] LABS: BASOPHILS % 0.6 % (0.0-2.0); EOSINOPHILS % 7.4 % (0.0-5.0); HEMATOCRIT. 25.4 % (42.0-52.0); HEMOGLOBIN. 8.3 g/dL (14.0-18.0); LYMPHOCYTES % 14.9 % (20.0-50.0); MEAN CORPUSCULAR HEMOGLOBIN 28.7 pg (28.0-32.0); MEAN CORPUSCULAR VOLUME 87.6 fL (80.0-94.0); MONOCYTES % 13.1 % (2.0-8.0); RED CELL DISTRIBUTION WIDTH 20.9 % (11.6-14.6)
[2022-10-09 06:32] LABS: PLATELET 32 x1000/uL (130-400)
[2022-10-09 07:58] LABS: CHLORIDE 114 mEq/L (98-107)
[2022-10-09] MEDS: MULTIVITAMINS,THER W-MINERALS TABLET PO SCH (08:07)
[2022-10-09] MEDS: DOXYCYCLINE HYCLATE 100MG CAPSULE PO SCH ×2 (08:07→16:53)
[2022-10-09] MEDS: FOLIC ACID 1MG TABLET PO SCH (08:07)
[2022-10-09] MEDS: PANTOPRAZOLE SODIUM 40 MG/VIAL IV SCH ×2 (08:08→21:46)
[2022-10-09] MEDS: FUROSEMIDE 40MG/4ML VIAL IVP SCH (08:08)
[2022-10-09] MEDS: ARIPIPRAZOLE 5MG TABLET PO SCH (08:08)
[2022-10-09] MEDS: PANTOT AC/MIN OIL/PET HY-PHL OINT (AQUAPHOR) TOP SCH (08:09)
[2022-10-09 08:53] LABS: BG BASE EXCESS 1.8 mmol/L (-2.0-2.0); BG CARBOXYHEMOGLOBIN 0.3 % (0.5-1.5); BG DEOXYHEMOGLOBIN 7.6 % (0.0-5.0); BG FRACTION INSPIRED OXYGEN 21; BG HCO3 ACT 25.4 mmol/L (22.0-26.0); BG METHEMOGLOBIN 0.3 % (0.0-1.5); BG OXYGEN SATURATION 92.4 % (92.0-98.5); BG OXYHEMOGLOBIN 91.8 % (94.0-97.0); BG PCO2 35.4 mmHg (35.0-45.0); BG PH 7.473 (7.350-7.450); BG PO2 62.2 mmHg (75.0-100.0); BG SAMPLE SITE RIGHT RADIAL; BG TOTAL HEMOGLOBIN 8.2 g/dL (12.0-18.0); BG VENT MODE ROOM AIR
[2022-10-09] MEDS ORDERED: POTASSIUM CHLORIDE 20MEQ/PACKET PO NR (10:00)
[2022-10-09] MEDS: CEFAZOLIN 2,000 MG in DEXT 5% WATER 100 ML IV SCH (21:46)
[2022-10-10] VITALS (17 sets, daily range): BP systolic 120–151; BP diastolic 33–97
[2022-10-10] MEDS: IPRATROPIUM/ALBUTEROL 0.5-3(2.5)MG/3ML NEB HHN SCH ×4 (01:39→20:28)
[2022-10-10] MEDS: LEVETIRACETAM 500MG PREMIX 100 ML IV SCH ×2 (05:45→16:22)
[2022-10-10] MEDS: INSULIN LISPRO 100 UNITS/ML SUBCUT SCH ×5 (06:00→23:27)
[2022-10-10] MEDS: BLOOD SUGAR DIAGNOSTIC STRIP TEST SCH ×5 (06:00→23:26)
[2022-10-10] MEDS: CEFAZOLIN 2,000 MG in DEXT 5% WATER 100 ML IV SCH ×3 (06:25→22:07)
[2022-10-10 08:01] LABS: BASOPHILS % 0.4 % (0.0-2.0); EOSINOPHILS % 6.3 % (0.0-5.0); HEMATOCRIT. 25.8 % (42.0-52.0); HEMOGLOBIN. 8.7 g/dL (14.0-18.0); LYMPHOCYTES % 13.1 % (20.0-50.0); MEAN CORPUSCULAR HEMOGLOBIN 29.5 pg (28.0-32.0); MEAN CORPUSCULAR VOLUME 87.5 fL (80.0-94.0); MEAN PLATELET VOLUME 11.3 fl (7.4-10.4); MONOCYTES % 9.5 % (2.0-8.0); NEUTROPHILS % 70.7 % (40.0-76.0); RED BLOOD CELL COUNT 2.95 mill/uL (4.7-6.1); RED CELL DISTRIBUTION WIDTH 20.2 % (11.6-14.6)
[2022-10-10 08:07] LABS: PLATELET 43 x1000/uL (130-400)
[2022-10-10] MEDS: MULTIVITAMINS,THER W-MINERALS TABLET PO SCH (08:26)
[2022-10-10] MEDS: PANTOPRAZOLE SODIUM 40 MG/VIAL IV SCH ×2 (08:26→22:07)
[2022-10-10] MEDS: FOLIC ACID 1MG TABLET PO SCH (08:26)
[2022-10-10] MEDS: FUROSEMIDE 40MG/4ML VIAL IVP SCH (08:26)
[2022-10-10] MEDS: ARIPIPRAZOLE 5MG TABLET PO SCH (08:26)
[2022-10-10] MEDS: PANTOT AC/MIN OIL/PET HY-PHL OINT (AQUAPHOR) TOP SCH (08:27)
[2022-10-10 08:36] LABS: CHLORIDE 114 mEq/L (98-107)
[2022-10-11] VITALS (18 sets, daily range): BP systolic 64–150; BP diastolic 20–82
[2022-10-11] MEDS: IPRATROPIUM/ALBUTEROL 0.5-3(2.5)MG/3ML NEB HHN SCH ×3 (02:20→20:39)
[2022-10-11] MEDS: ACETYLCYSTEINE 100MG/ML 10% VIAL 4ML INH SCH (02:24)
[2022-10-11] MEDS: CEFAZOLIN 2,000 MG in DEXT 5% WATER 100 ML IV SCH ×3 (05:45→21:44)
[2022-10-11] MEDS: BLOOD SUGAR DIAGNOSTIC STRIP TEST SCH ×4 (05:45→23:49)
[2022-10-11] MEDS: LEVETIRACETAM 500MG PREMIX 100 ML IV SCH ×2 (05:45→17:00)
[2022-10-11] MEDS: DEXTROSE 50% WATER 50ML SYRINGE IV PRN (05:45)
[2022-10-11] MEDS: INSULIN LISPRO 100 UNITS/ML SUBCUT SCH ×3 (05:45→18:00)
[2022-10-11] MEDS: FUROSEMIDE 40MG/4ML VIAL IVP SCH (08:42)
[2022-10-11] MEDS: MULTIVITAMINS,THER W-MINERALS TABLET PO SCH (08:42)
[2022-10-11] MEDS: PANTOT AC/MIN OIL/PET HY-PHL OINT (AQUAPHOR) TOP SCH (08:43)
[2022-10-11] MEDS: ARIPIPRAZOLE 5MG TABLET PO SCH (08:43)
[2022-10-11] MEDS: FOLIC ACID 1MG TABLET PO SCH (08:43)
[2022-10-11] MEDS: PANTOPRAZOLE SODIUM 40 MG/VIAL IV SCH ×2 (08:43→21:44)
[2022-10-11 08:51] LABS: BG BASE EXCESS 2.4 mmol/L (-2.0-2.0); BG CARBOXYHEMOGLOBIN 0.7 % (0.5-1.5); BG DEOXYHEMOGLOBIN 4.2 % (0.0-5.0); BG FRACTION INSPIRED OXYGEN 34; BG HCO3 ACT 25.9 mmol/L (22.0-26.0); BG METHEMOGLOBIN 0.6 % (0.0-1.5); BG OXYGEN SATURATION 95.7 % (92.0-98.5); BG OXYHEMOGLOBIN 94.5 % (94.0-97.0); BG PCO2 35.7 mmHg (35.0-45.0); BG PH 7.479 (7.350-7.450); BG PO2 82.4 mmHg (75.0-100.0); BG SAMPLE SITE RIGHT RADIAL; BG TOTAL HEMOGLOBIN 9.1 g/dL (12.0-18.0); BG VENT MODE NASAL CANNULA
[2022-10-11 10:54] LABS: BASOPHILS % 0.6 % (0.0-2.0); EOSINOPHILS % 4.5 % (0.0-5.0); HEMATOCRIT. 27.9 % (42.0-52.0); HEMOGLOBIN. 9.1 g/dL (14.0-18.0); LYMPHOCYTES % 7.6 % (20.0-50.0); MEAN CORPUSCULAR HEMOGLOBIN 28.7 pg (28.0-32.0); MEAN CORPUSCULAR VOLUME 87.8 fL (80.0-94.0); MEAN PLATELET VOLUME 10.5 fl (7.4-10.4); MONOCYTES % 5.1 % (2.0-8.0); NEUTROPHILS % 82.2 % (40.0-76.0); PLATELET 79 x1000/uL (130-400); RED BLOOD CELL COUNT 3.17 mill/uL (4.7-6.1); RED CELL DISTRIBUTION WIDTH 20.8 % (11.6-14.6)
[2022-10-11 11:00] LABS: CHLORIDE 113 mEq/L (98-107)
[2022-10-11] MEDS: LORAZEPAM 2MG/ML CPJ IV PRN (23:59)
[2022-10-12] VITALS (15 sets, daily range): BP systolic 90–130; BP diastolic 52–79
[2022-10-12] MEDS: IPRATROPIUM/ALBUTEROL 0.5-3(2.5)MG/3ML NEB HHN SCH (02:24)
[2022-10-12] MEDS: LEVETIRACETAM 500MG PREMIX 100 ML IV SCH ×2 (05:08→16:55)
[2022-10-12] MEDS: INSULIN LISPRO 100 UNITS/ML SUBCUT SCH ×5 (06:00→23:20)
[2022-10-12] MEDS: CEFAZOLIN 2,000 MG in DEXT 5% WATER 100 ML IV SCH ×3 (06:24→21:35)
[2022-10-12] MEDS: BLOOD SUGAR DIAGNOSTIC STRIP TEST SCH ×4 (06:39→23:19)
[2022-10-12] MEDS: DEXTROSE 50% WATER 50ML SYRINGE IV PRN (06:44)
[2022-10-12] MEDS ORDERED: POTASSIUM CHLORIDE 20MEQ TABLET SR PO NR (08:00)
[2022-10-12] MEDS: ACETYLCYSTEINE 100MG/ML 10% VIAL 4ML INH SCH ×2 (08:32→16:00)
[2022-10-12] MEDS ORDERED: LIDOCAINE HCL 1% 30ML VIAL (10MG/ML) ONE (09:22)
[2022-10-12] MEDS: ARIPIPRAZOLE 5MG TABLET PO SCH (10:38)
[2022-10-12] MEDS: MULTIVITAMINS,THER W-MINERALS TABLET PO SCH (10:38)
[2022-10-12] MEDS: FOLIC ACID 1MG TABLET PO SCH (10:38)
[2022-10-12] MEDS: PANTOPRAZOLE SODIUM 40 MG/VIAL IV SCH (10:39)
[2022-10-12] MEDS: FUROSEMIDE 40MG/4ML VIAL IVP SCH (10:39)
[2022-10-12] MEDS: PANTOT AC/MIN OIL/PET HY-PHL OINT (AQUAPHOR) TOP SCH (10:40)
[2022-10-12 11:19] LABS: BASOPHILS % 0.7 % (0.0-2.0); EOSINOPHILS % 8.3 % (0.0-5.0); HEMATOCRIT. 25.5 % (42.0-52.0); HEMOGLOBIN. 8.6 g/dL (14.0-18.0); LYMPHOCYTES % 15.6 % (20.0-50.0); MEAN CORPUSCULAR HEMOGLOBIN 29.2 pg (28.0-32.0); MEAN CORPUSCULAR VOLUME 87.1 fL (80.0-94.0); MEAN PLATELET VOLUME 10.6 fl (7.4-10.4); MONOCYTES % 8.3 % (2.0-8.0); NEUTROPHILS % 67.1 % (40.0-76.0); PLATELET 116 x1000/uL (130-400); RED BLOOD CELL COUNT 2.93 mill/uL (4.7-6.1); RED CELL DISTRIBUTION WIDTH 20.7 % (11.6-14.6)
[2022-10-12 12:33] LABS: CHLORIDE 115 mEq/L (98-107)
[2022-10-12 13:10] LABS: PHOSPHORUS 3.2 mg/dL (2.5-4.9)
[2022-10-12] MEDS: PANTOPRAZOLE 40MG DR TABLET PO SCH (15:08)
[2022-10-12] MEDS: LORAZEPAM 2MG/ML CPJ IV PRN (23:20)
[2022-10-13] VITALS (7 sets, daily range): BP systolic 94–137; BP diastolic 44–94
[2022-10-13] MEDS: ACETYLCYSTEINE 100MG/ML 10% VIAL 4ML INH SCH ×2 (00:19→08:40)
[2022-10-13] MEDS: LEVETIRACETAM 500MG PREMIX 100 ML IV SCH ×2 (04:50→16:49)
[2022-10-13] MEDS: CEFAZOLIN 2,000 MG in DEXT 5% WATER 100 ML IV SCH ×3 (05:35→21:34)
[2022-10-13] MEDS: INSULIN LISPRO 100 UNITS/ML SUBCUT SCH ×4 (05:35→23:23)
[2022-10-13] MEDS: BLOOD SUGAR DIAGNOSTIC STRIP TEST SCH ×4 (05:35→23:22)
[2022-10-13 06:49] LABS: EOSINOPHILS % 8.2 % (0.0-5.0); HEMATOCRIT. 24.8 % (42.0-52.0); HEMOGLOBIN. 8.1 g/dL (14.0-18.0); LYMPHOCYTES % 18.2 % (20.0-50.0); MEAN CORPUSCULAR HEMOGLOBIN 28.8 pg (28.0-32.0); MEAN CORPUSCULAR VOLUME 88.2 fL (80.0-94.0); MEAN PLATELET VOLUME 10.7 fl (7.4-10.4); MONOCYTES % 6.8 % (2.0-8.0); NEUTROPHILS % 65.8 % (40.0-76.0); PLATELET 135 x1000/uL (130-400); RED BLOOD CELL COUNT 2.81 mill/uL (4.7-6.1); RED CELL DISTRIBUTION WIDTH 20.6 % (11.6-14.6)
[2022-10-13 06:52] LABS: CHLORIDE 113 mEq/L (98-107)
[2022-10-13 08:31] LABS: BG BASE EXCESS 3.6 mmol/L (-2.0-2.0); BG CARBOXYHEMOGLOBIN 0.5 % (0.5-1.5); BG DEOXYHEMOGLOBIN 2.7 % (0.0-5.0); BG FRACTION INSPIRED OXYGEN 36; BG HCO3 ACT 28.2 mmol/L (22.0-26.0); BG METHEMOGLOBIN 0.2 % (0.0-1.5); BG OXYGEN SATURATION 97.3 % (92.0-98.5); BG OXYHEMOGLOBIN 96.6 % (94.0-97.0); BG PCO2 42.8 mmHg (35.0-45.0); BG PH 7.436 (7.350-7.450); BG PO2 95.7 mmHg (75.0-100.0); BG SAMPLE SITE RIGHT RADIAL; BG TOTAL HEMOGLOBIN 9.4 g/dL (12.0-18.0); BG VENT MODE NASAL CANNULA
[2022-10-13] MEDS: PANTOPRAZOLE 40MG DR TABLET PO SCH (08:38)
[2022-10-13] MEDS: FOLIC ACID 1MG TABLET PO SCH (08:38)
[2022-10-13] MEDS: ARIPIPRAZOLE 5MG TABLET PO SCH (08:38)
[2022-10-13] MEDS: MULTIVITAMINS,THER W-MINERALS TABLET PO SCH (08:38)
[2022-10-13] MEDS ORDERED: POTASSIUM CHLORIDE 20MEQ/PACKET PO NR (08:45)
[2022-10-13] MEDS: FUROSEMIDE 40MG/4ML VIAL IVP SCH (08:51)
[2022-10-13] MEDS: PANTOT AC/MIN OIL/PET HY-PHL OINT (AQUAPHOR) TOP SCH (08:56)
[2022-10-13] MEDS ORDERED: KCL 20MEQ/100ML PREMIX 100 ML IV NR (10:00)
[2022-10-13 10:07] LABS: PHOSPHORUS 2.8 mg/dL (2.5-4.9)
[2022-10-13] MEDS: ENOXAPARIN 40MG/0.4ML SYR SUBCUT SCH (16:15)
[2022-10-13] MEDS ORDERED: LOPERAMIDE HCL 2MG CAPSULE PO NR (16:45)
[2022-10-13] MEDS ORDERED: LOPERAMIDE HCL 2MG CAPSULE PO PRN (16:45)
[2022-10-13] MEDS: SENNOSIDES/DOCUSATE SOD 8.6/50MG TABLET PO SCH (20:20)
[2022-10-13] MEDS: LORAZEPAM 2MG/ML CPJ IV PRN (22:53)
[2022-10-14] VITALS: BP 139/78
[2022-10-14 04:00] VITALS: BP 141/83
[2022-10-14] MEDS: LORAZEPAM 2MG/ML CPJ IV PRN (04:29)
[2022-10-14] MEDS: LEVETIRACETAM 500MG PREMIX 100 ML IV SCH ×2 (04:29→16:45)
[2022-10-14] MEDS: CEFAZOLIN 2,000 MG in DEXT 5% WATER 100 ML IV SCH ×3 (05:31→23:09)
[2022-10-14] MEDS: BLOOD SUGAR DIAGNOSTIC STRIP TEST SCH ×3 (05:31→18:00)
[2022-10-14] MEDS: INSULIN LISPRO 100 UNITS/ML SUBCUT SCH ×3 (05:38→18:00)
[2022-10-14 06:32] LABS: BASOPHILS % 0.7 % (0.0-2.0); EOSINOPHILS % 10.4 % (0.0-5.0); HEMATOCRIT. 24.3 % (42.0-52.0); HEMOGLOBIN. 8.1 g/dL (14.0-18.0); LYMPHOCYTES % 22.2 % (20.0-50.0); MEAN CORPUSCULAR HEMOGLOBIN 28.9 pg (28.0-32.0); MEAN CORPUSCULAR VOLUME 87.2 fL (80.0-94.0); MONOCYTES % 6.5 % (2.0-8.0); NEUTROPHILS % 60.2 % (40.0-76.0); PLATELET 151 x1000/uL (130-400); RED BLOOD CELL COUNT 2.78 mill/uL (4.7-6.1); RED CELL DISTRIBUTION WIDTH 19.9 % (11.6-14.6)
[2022-10-14 07:17] LABS: CHLORIDE 107 mEq/L (98-107)
[2022-10-14 08:00] VITALS: BP 128/74
[2022-10-14] MEDS ORDERED: POTASSIUM CHLORIDE 20MEQ TABLET SR PO NR (08:00)
[2022-10-14] MEDS: PANTOPRAZOLE 40MG DR TABLET PO SCH (09:59)
[2022-10-14] MEDS: FUROSEMIDE 40MG/4ML VIAL IVP SCH (09:59)
[2022-10-14] MEDS: MULTIVITAMINS,THER W-MINERALS TABLET PO SCH (09:59)
[2022-10-14] MEDS: FOLIC ACID 1MG TABLET PO SCH (10:00)
[2022-10-14] MEDS: ARIPIPRAZOLE 5MG TABLET PO SCH (10:00)
[2022-10-14 12:00] VITALS: BP 109/75
[2022-10-14] MEDS: PANTOT AC/MIN OIL/PET HY-PHL OINT (AQUAPHOR) TOP SCH (12:39)
[2022-10-14] MEDS: ENOXAPARIN 40MG/0.4ML SYR SUBCUT SCH (15:11)
[2022-10-14 16:00] VITALS: BP 116/73
[2022-10-14 20:00] VITALS: BP 129/79
[2022-10-14] MEDS: SENNOSIDES/DOCUSATE SOD 8.6/50MG TABLET PO SCH (23:08)
[2022-10-15] VITALS (10 sets, daily range): BP systolic 111–154; BP diastolic 57–99
[2022-10-15] MEDS: BLOOD SUGAR DIAGNOSTIC STRIP TEST SCH ×4 (00:19→18:00)
[2022-10-15] MEDS: LEVETIRACETAM 500MG PREMIX 100 ML IV SCH (05:00)
[2022-10-15] MEDS: CEFAZOLIN 2,000 MG in DEXT 5% WATER 100 ML IV SCH (06:00)
[2022-10-15] MEDS: INSULIN LISPRO 100 UNITS/ML SUBCUT SCH ×4 (06:00→18:00)
[2022-10-15 06:21] LABS: BASOPHILS % 0.8 % (0.0-2.0); EOSINOPHILS % 9.9 % (0.0-5.0); HEMATOCRIT. 25.9 % (42.0-52.0); HEMOGLOBIN. 8.6 g/dL (14.0-18.0); LYMPHOCYTES % 24.5 % (20.0-50.0); MEAN CORPUSCULAR HEMOGLOBIN 29.1 pg (28.0-32.0); MEAN CORPUSCULAR VOLUME 87.6 fL (80.0-94.0); MEAN PLATELET VOLUME 10.2 fl (7.4-10.4); MONOCYTES % 7.8 % (2.0-8.0); PLATELET 168 x1000/uL (130-400); RED BLOOD CELL COUNT 2.96 mill/uL (4.7-6.1); RED CELL DISTRIBUTION WIDTH 19.8 % (11.6-14.6)
[2022-10-15 09:08] LABS: CHLORIDE 106 mEq/L (98-107)
[2022-10-15] MEDS: ARIPIPRAZOLE 5MG TABLET PO SCH (09:22)
[2022-10-15] MEDS: PANTOPRAZOLE 40MG DR TABLET PO SCH (09:23)
[2022-10-15] MEDS: FOLIC ACID 1MG TABLET PO SCH (09:23)
[2022-10-15] MEDS: DIPHENHYDRAMINE 25MG CAPSULE PO PRN ×2 (09:23→16:34)
[2022-10-15] MEDS: FUROSEMIDE 40MG TABLET PO SCH (09:23)
[2022-10-15] MEDS: LEVETIRACETAM 500MG TABLET PO SCH ×2 (09:24→21:02)
[2022-10-15] MEDS: PANTOT AC/MIN OIL/PET HY-PHL OINT (AQUAPHOR) TOP SCH (09:24)
[2022-10-15] MEDS: MULTIVITAMINS,THER W-MINERALS TABLET PO SCH (09:24)
[2022-10-15] MEDS: CEFTRIAXONE SODIUM IM SCH (16:11)
[2022-10-15] MEDS: ENOXAPARIN 40MG/0.4ML SYR SUBCUT SCH (16:12)
[2022-10-15] MEDS ORDERED: LORAZEPAM 0.5MG TABLET PO NR (18:00)
[2022-10-15] MEDS ORDERED: LORAZEPAM 2MG/ML CPJ IM PRN ×2 (18:00)
[2022-10-15] MEDS ORDERED: HALOPERIDOL LACTATE 5MG/ML VIAL IM PRN (18:00)
[2022-10-15] MEDS ORDERED: DIPHENHYDRAMINE 50MG/ML VIAL IM PRN (19:45)
[2022-10-15] MEDS: SENNOSIDES/DOCUSATE SOD 8.6/50MG TABLET PO SCH (21:03)
[2022-10-16] VITALS (7 sets, daily range): BP systolic 113–146; BP diastolic 35–90
[2022-10-16] MEDS: DIPHENHYDRAMINE 25MG CAPSULE PO PRN (01:08)
[2022-10-16] MEDS: BLOOD SUGAR DIAGNOSTIC STRIP TEST SCH ×5 (05:58→22:57)
[2022-10-16] MEDS: INSULIN LISPRO 100 UNITS/ML SUBCUT SCH ×4 (05:58→17:36)
[2022-10-16] MEDS: ARIPIPRAZOLE 5MG TABLET PO SCH (08:40)
[2022-10-16] MEDS: FOLIC ACID 1MG TABLET PO SCH (08:41)
[2022-10-16] MEDS: PANTOPRAZOLE 40MG DR TABLET PO SCH (08:41)
[2022-10-16] MEDS: PANTOT AC/MIN OIL/PET HY-PHL OINT (AQUAPHOR) TOP SCH (08:42)
[2022-10-16] MEDS: MULTIVITAMINS,THER W-MINERALS TABLET PO SCH (08:45)
[2022-10-16] MEDS: FUROSEMIDE 40MG TABLET PO SCH (08:45)
[2022-10-16] MEDS: LEVETIRACETAM 500MG TABLET PO SCH ×2 (08:45→22:56)
[2022-10-16] MEDS: CEFTRIAXONE SODIUM IM SCH (09:00)
[2022-10-16] MEDS: ENOXAPARIN 40MG/0.4ML SYR SUBCUT SCH ×2 (16:00→16:54)
[2022-10-16] MEDS: TRAZODONE HCL 50MG TABLET PO SCH (22:56)
[2022-10-16] MEDS: SENNOSIDES/DOCUSATE SOD 8.6/50MG TABLET PO SCH (22:56)
[2022-10-17 04:15] VITALS: BP 124/56
[2022-10-17] MEDS: INSULIN LISPRO 100 UNITS/ML SUBCUT SCH ×4 (06:00→18:00)
[2022-10-17] MEDS: BLOOD SUGAR DIAGNOSTIC STRIP TEST SCH ×3 (06:15→18:35)
[2022-10-17] MEDS: PANTOPRAZOLE 40MG DR TABLET PO SCH (06:55)
[2022-10-17 06:56] LABS: BASOPHILS % 1.3 % (0.0-2.0); EOSINOPHILS % 12.3 % (0.0-5.0); HEMOGLOBIN. 8.6 g/dL (14.0-18.0); LYMPHOCYTES % 28.3 % (20.0-50.0); MEAN CORPUSCULAR HEMOGLOBIN 28.9 pg (28.0-32.0); MEAN CORPUSCULAR VOLUME 86.8 fL (80.0-94.0); MEAN PLATELET VOLUME 10.4 fl (7.4-10.4); MONOCYTES % 8.7 % (2.0-8.0); NEUTROPHILS % 49.4 % (40.0-76.0); PLATELET 182 x1000/uL (130-400); RED BLOOD CELL COUNT 2.99 mill/uL (4.7-6.1)
[2022-10-17 07:46] LABS: CHLORIDE 107 mEq/L (98-107)
[2022-10-17 08:00] VITALS: BP 112/60
[2022-10-17] MEDS: PANTOT AC/MIN OIL/PET HY-PHL OINT (AQUAPHOR) TOP SCH (09:00)
[2022-10-17] MEDS: FUROSEMIDE 40MG TABLET PO SCH (09:27)
[2022-10-17] MEDS: FOLIC ACID 1MG TABLET PO SCH (09:27)
[2022-10-17] MEDS: LEVETIRACETAM 500MG TABLET PO SCH ×2 (09:27→21:49)
[2022-10-17] MEDS: ARIPIPRAZOLE 5MG TABLET PO SCH (09:28)
[2022-10-17] MEDS: MULTIVITAMINS,THER W-MINERALS TABLET PO SCH (09:28)
[2022-10-17 12:00] VITALS: BP 98/43
[2022-10-17] MEDS: ENOXAPARIN 40MG/0.4ML SYR SUBCUT SCH (16:00)
[2022-10-17] MEDS ORDERED: CEFTRIAXONE 2GM/50ML (ADDEASE) 50 ML IV SCH (18:15)
[2022-10-17 20:11] VITALS: BP 136/55
[2022-10-17] MEDS: SENNOSIDES/DOCUSATE SOD 8.6/50MG TABLET PO SCH (21:49)
[2022-10-17] MEDS: TRAZODONE HCL 50MG TABLET PO SCH (21:49)
[2022-10-17] MEDS: CEFTRIAXONE 2 G in DEXTROSE 5% WATER 50 ML IV SCH (22:18)
[2022-10-18 00:01] VITALS: BP 112/58
[2022-10-18] MEDS: BLOOD SUGAR DIAGNOSTIC STRIP TEST SCH ×4 (00:22→18:00)
[2022-10-18 04:00] VITALS: BP 125/56
[2022-10-18] MEDS: INSULIN LISPRO 100 UNITS/ML SUBCUT SCH ×4 (06:00→18:00)
[2022-10-18] MEDS: PANTOPRAZOLE 40MG DR TABLET PO SCH (06:23)
[2022-10-18 08:00] VITALS: BP 118/60
[2022-10-18] MEDS: MULTIVITAMINS,THER W-MINERALS TABLET PO SCH (09:00)
[2022-10-18] MEDS: PANTOT AC/MIN OIL/PET HY-PHL OINT (AQUAPHOR) TOP SCH (09:00)
[2022-10-18] MEDS: LEVETIRACETAM 500MG TABLET PO SCH ×2 (09:00→20:54)
[2022-10-18] MEDS: FOLIC ACID 1MG TABLET PO SCH ×2 (09:00→10:55)
[2022-10-18] MEDS: ARIPIPRAZOLE 5MG TABLET PO SCH (09:00)
[2022-10-18] MEDS: FUROSEMIDE 40MG TABLET PO SCH (09:00)
[2022-10-18] MEDS ORDERED: IPRATROPIUM/ALBUTEROL 0.5-3(2.5)MG/3ML NEB HHN PRN (11:15)
[2022-10-18 11:55] VITALS: BP 103/57
[2022-10-18 16:00] VITALS: BP 103/54
[2022-10-18] MEDS: ENOXAPARIN 40MG/0.4ML SYR SUBCUT SCH (16:00)
[2022-10-18 17:17] LABS: BASOPHILS % 1.2 % (0.0-2.0); HEMATOCRIT. 25.3 % (42.0-52.0); HEMOGLOBIN. 8.4 g/dL (14.0-18.0); LYMPHOCYTES % 29.6 % (20.0-50.0); MEAN CORPUSCULAR HEMOGLOBIN 28.8 pg (28.0-32.0); MEAN CORPUSCULAR VOLUME 87.3 fL (80.0-94.0); MEAN PLATELET VOLUME 9.7 fl (7.4-10.4); MONOCYTES % 11.3 % (2.0-8.0); NEUTROPHILS % 45.9 % (40.0-76.0); PLATELET 258 x1000/uL (130-400); RED CELL DISTRIBUTION WIDTH 19.5 % (11.6-14.6)
[2022-10-18 17:30] LABS: CHLORIDE 107 mEq/L (98-107)
[2022-10-18 20:00] VITALS: BP 122/59
[2022-10-18] MEDS: TRAZODONE HCL 50MG TABLET PO SCH (20:53)
[2022-10-18] MEDS: SENNOSIDES/DOCUSATE SOD 8.6/50MG TABLET PO SCH (21:37)
[2022-10-18] MEDS: CEFTRIAXONE 2 G in DEXTROSE 5% WATER 50 ML IV SCH ×2 (21:37→22:59)
[2022-10-18] MEDS: DIPHENHYDRAMINE 25MG CAPSULE PO PRN (22:44)
[2022-10-19] VITALS: BP 129/59
[2022-10-19] MEDS: CEFTRIAXONE 2 G in DEXTROSE 5% WATER 50 ML IV SCH (02:00)
[2022-10-19 04:00] VITALS: BP 107/51
[2022-10-19] MEDS: INSULIN LISPRO 100 UNITS/ML SUBCUT SCH ×4 (06:00→16:56)
[2022-10-19] MEDS: BLOOD SUGAR DIAGNOSTIC STRIP TEST SCH ×4 (06:00→16:56)
[2022-10-19] MEDS: PANTOPRAZOLE 40MG DR TABLET PO SCH (06:30)
[2022-10-19 08:00] VITALS: BP 105/47
[2022-10-19] MEDS: LEVETIRACETAM 500MG TABLET PO SCH ×2 (09:23→22:22)
[2022-10-19] MEDS: MULTIVITAMINS,THER W-MINERALS TABLET PO SCH (09:23)
[2022-10-19] MEDS: FOLIC ACID 1MG TABLET PO SCH (09:24)
[2022-10-19] MEDS: ARIPIPRAZOLE 5MG TABLET PO SCH ×2 (09:24→11:15)
[2022-10-19] MEDS: FUROSEMIDE 40MG TABLET PO SCH (09:29)
[2022-10-19] MEDS: PANTOT AC/MIN OIL/PET HY-PHL OINT (AQUAPHOR) TOP SCH (09:29)
[2022-10-19 12:00] VITALS: BP 127/69
[2022-10-19] MEDS: ENOXAPARIN 40MG/0.4ML SYR SUBCUT SCH (16:00)
[2022-10-19 20:00] VITALS: BP 101/28
[2022-10-19] MEDS: SENNOSIDES/DOCUSATE SOD 8.6/50MG TABLET PO SCH (21:00)
[2022-10-19] MEDS: TRAZODONE HCL 50MG TABLET PO SCH (22:22)
[2022-10-20] VITALS: BP 119/60
[2022-10-20] MEDS: BLOOD SUGAR DIAGNOSTIC STRIP TEST SCH ×4 (00:27→17:04)
[2022-10-20 04:00] VITALS: BP 110/59
[2022-10-20] MEDS: PANTOPRAZOLE 40MG DR TABLET PO SCH (06:41)
[2022-10-20 08:00] VITALS: BP 132/98
[2022-10-20] MEDS: MULTIVITAMINS,THER W-MINERALS TABLET PO SCH (08:45)
[2022-10-20] MEDS: LEVETIRACETAM 500MG TABLET PO SCH ×2 (08:45→22:36)
[2022-10-20] MEDS: FUROSEMIDE 40MG TABLET PO SCH (08:45)
[2022-10-20] MEDS: FOLIC ACID 1MG TABLET PO SCH (08:46)
[2022-10-20] MEDS: ARIPIPRAZOLE 5MG TABLET PO SCH (08:46)
[2022-10-20] MEDS: PANTOT AC/MIN OIL/PET HY-PHL OINT (AQUAPHOR) TOP SCH (08:46)
[2022-10-20] MEDS: INSULIN LISPRO 100 UNITS/ML SUBCUT SCH ×3 (11:27→17:04)
[2022-10-20 12:00] VITALS: BP 129/78
[2022-10-20] MEDS: ENOXAPARIN 40MG/0.4ML SYR SUBCUT SCH (15:51)
[2022-10-20 16:00] VITALS: BP 110/53
[2022-10-20 20:00] VITALS: BP 150/71
[2022-10-20] MEDS: CEFTRIAXONE 2 G in DEXTROSE 5% WATER 50 ML IV SCH (20:00)
[2022-10-20] MEDS: SENNOSIDES/DOCUSATE SOD 8.6/50MG TABLET PO SCH (22:35)
[2022-10-20] MEDS: TRAZODONE HCL 50MG TABLET PO SCH (22:36)
[2022-10-21] VITALS: BP 154/69
[2022-10-21] MEDS: BLOOD SUGAR DIAGNOSTIC STRIP TEST SCH ×5 (06:00→22:55)
[2022-10-21] MEDS: INSULIN LISPRO 100 UNITS/ML SUBCUT SCH ×5 (06:00→22:55)
[2022-10-21] MEDS: PANTOPRAZOLE 40MG DR TABLET PO SCH (06:47)
[2022-10-21 08:00] VITALS: BP 114/55
[2022-10-21] MEDS: PANTOT AC/MIN OIL/PET HY-PHL OINT (AQUAPHOR) TOP SCH (09:00)
[2022-10-21] MEDS: FUROSEMIDE 40MG TABLET PO SCH (09:16)
[2022-10-21] MEDS: FOLIC ACID 1MG TABLET PO SCH (09:16)
[2022-10-21] MEDS: LEVETIRACETAM 500MG TABLET PO SCH ×2 (09:16→22:54)
[2022-10-21] MEDS: MULTIVITAMINS,THER W-MINERALS TABLET PO SCH (09:16)
[2022-10-21] MEDS: ARIPIPRAZOLE 5MG TABLET PO SCH (09:17)
[2022-10-21 12:00] VITALS: BP 130/73
[2022-10-21 16:00] VITALS: BP 142/77
[2022-10-21] MEDS: ENOXAPARIN 40MG/0.4ML SYR SUBCUT SCH (16:00)
[2022-10-21 20:00] VITALS: BP 136/47
[2022-10-21] MEDS: SENNOSIDES/DOCUSATE SOD 8.6/50MG TABLET PO SCH (21:00)
[2022-10-21] MEDS: TRAZODONE HCL 50MG TABLET PO SCH (22:54)
[2022-10-22 00:08] VITALS: BP 112/48
[2022-10-22 04:00] VITALS: BP_SYST 112; BP_SYST 128; BP_DIAS 48; BP_DIAS 51
[2022-10-22] MEDS: INSULIN LISPRO 100 UNITS/ML SUBCUT SCH ×3 (06:00→17:48)
[2022-10-22] MEDS: BLOOD SUGAR DIAGNOSTIC STRIP TEST SCH ×3 (06:48→17:48)
[2022-10-22] MEDS: PANTOPRAZOLE 40MG DR TABLET PO SCH (06:49)
[2022-10-22 07:51] LABS: BASOPHILS % 1.3 % (0.0-2.0); EOSINOPHILS % 8.4 % (0.0-5.0); HEMATOCRIT. 26.5 % (42.0-52.0); HEMOGLOBIN. 8.8 g/dL (14.0-18.0); LYMPHOCYTES % 39.1 % (20.0-50.0); MEAN CORPUSCULAR HEMOGLOBIN 29.1 pg (28.0-32.0); MEAN CORPUSCULAR VOLUME 87.4 fL (80.0-94.0); MONOCYTES % 9.8 % (2.0-8.0); NEUTROPHILS % 41.4 % (40.0-76.0); PLATELET 342 x1000/uL (130-400); RED BLOOD CELL COUNT 3.03 mill/uL (4.7-6.1); RED CELL DISTRIBUTION WIDTH 19.1 % (11.6-14.6)
[2022-10-22 08:12] LABS: CHLORIDE 110 mEq/L (98-107)
[2022-10-22] MEDS: PANTOT AC/MIN OIL/PET HY-PHL OINT (AQUAPHOR) TOP SCH (09:00)
[2022-10-22] MEDS: LEVETIRACETAM 500MG TABLET PO SCH ×2 (09:49→22:36)
[2022-10-22] MEDS: MULTIVITAMINS,THER W-MINERALS TABLET PO SCH (09:49)
[2022-10-22] MEDS: FOLIC ACID 1MG TABLET PO SCH (09:50)
[2022-10-22] MEDS: ARIPIPRAZOLE 5MG TABLET PO SCH (09:50)
[2022-10-22] MEDS: FUROSEMIDE 40MG TABLET PO SCH (09:51)
[2022-10-22 13:00] VITALS: BP 122/60
[2022-10-22 16:00] VITALS: BP 118/75
[2022-10-22] MEDS: ENOXAPARIN 40MG/0.4ML SYR SUBCUT SCH (16:00)
[2022-10-22 20:00] VITALS: BP 140/76
[2022-10-22] MEDS: SENNOSIDES/DOCUSATE SOD 8.6/50MG TABLET PO SCH (22:36)
[2022-10-22] MEDS: TRAZODONE HCL 50MG TABLET PO SCH (22:36)
[2022-10-23] VITALS: BP_SYST 125; BP_SYST 140; BP_DIAS 65; BP_DIAS 76
[2022-10-23] MEDS: BLOOD SUGAR DIAGNOSTIC STRIP TEST SCH ×4 (06:00→18:38)
[2022-10-23] MEDS: INSULIN LISPRO 100 UNITS/ML SUBCUT SCH ×4 (06:00→18:00)
[2022-10-23] MEDS: PANTOPRAZOLE 40MG DR TABLET PO SCH (06:30)
[2022-10-23 08:00] VITALS: BP 114/65
[2022-10-23] MEDS: ARIPIPRAZOLE 5MG TABLET PO SCH (09:54)
[2022-10-23] MEDS: FOLIC ACID 1MG TABLET PO SCH (09:54)
[2022-10-23] MEDS: MULTIVITAMINS,THER W-MINERALS TABLET PO SCH (09:55)
[2022-10-23] MEDS: LEVETIRACETAM 500MG TABLET PO SCH (09:55)
[2022-10-23] MEDS: FUROSEMIDE 40MG TABLET PO SCH (09:58)
[2022-10-23] MEDS: PANTOT AC/MIN OIL/PET HY-PHL OINT (AQUAPHOR) TOP SCH (11:38)
[2022-10-23] MEDS: ENOXAPARIN 100MG/ML SYR SUBCUT SCH ×2 (17:35→23:30)
[2022-10-23] MEDS: QUETIAPINE FUMARATE 25MG TABLET PO SCH (21:00)
[2022-10-23] MEDS: SENNOSIDES/DOCUSATE SOD 8.6/50MG TABLET PO SCH (21:00)
[2022-10-24] MEDS: TRAZODONE HCL 50MG TABLET PO SCH ×2 (02:47→20:45)
[2022-10-24] MEDS: LEVETIRACETAM 500MG TABLET PO SCH ×3 (02:47→20:46)
[2022-10-24] MEDS: BLOOD SUGAR DIAGNOSTIC STRIP TEST SCH ×4 (06:00→18:00)
[2022-10-24] MEDS: INSULIN LISPRO 100 UNITS/ML SUBCUT SCH ×4 (06:00→18:00)
[2022-10-24] MEDS: PANTOPRAZOLE 40MG DR TABLET PO SCH (06:29)
[2022-10-24 08:00] VITALS: BP 107/71
[2022-10-24] MEDS: MULTIVITAMINS,THER W-MINERALS TABLET PO SCH (08:14)
[2022-10-24] MEDS: FOLIC ACID 1MG TABLET PO SCH (08:14)
[2022-10-24] MEDS: FUROSEMIDE 40MG TABLET PO SCH (08:14)
[2022-10-24] MEDS: ARIPIPRAZOLE 5MG TABLET PO SCH (08:15)
[2022-10-24] MEDS: PANTOT AC/MIN OIL/PET HY-PHL OINT (AQUAPHOR) TOP SCH (08:15)
[2022-10-24] MEDS: ENOXAPARIN 100MG/ML SYR SUBCUT SCH ×2 (08:16→21:00)
[2022-10-24 12:00] VITALS: BP 118/76
[2022-10-24] MEDS ORDERED: IPRATROPIUM/ALBUTEROL 0.5-3(2.5)MG/3ML NEB HHN PRN (14:30)
[2022-10-24] MEDS ORDERED: TRAZ-251 PO (15:44)
[2022-10-24] MEDS ORDERED: PANT40TA51 PO (15:44)
[2022-10-24] MEDS ORDERED: FURO40TA5 PO (15:44)
[2022-10-24] MEDS ORDERED: ABIL5 PO (15:44)
[2022-10-24] MEDS ORDERED: QUET25TA PO (15:44)
[2022-10-24] MEDS ORDERED: KEPP500 PO (15:44)
[2022-10-24] MEDS ORDERED: APIX5TAB MT (15:44)
[2022-10-24 16:00] VITALS: BP 110/88
[2022-10-24 17:52] LABS: HEMATOCRIT. 28.1 % (42.0-52.0); HEMOGLOBIN. 9.3 g/dL (14.0-18.0); LYMPHOCYTES % 31.2 % (20.0-50.0); MEAN CORPUSCULAR HEMOGLOBIN 28.8 pg (28.0-32.0); MEAN CORPUSCULAR VOLUME 86.9 fL (80.0-94.0); MEAN PLATELET VOLUME 8.1 fl (7.4-10.4); MONOCYTES % 12.5 % (2.0-8.0); NEUTROPHILS % 48.3 % (40.0-76.0); PLATELET 359 x1000/uL (130-400); RED BLOOD CELL COUNT 3.23 mill/uL (4.7-6.1)
[2022-10-24 20:00] VITALS: BP 145/76
[2022-10-24] MEDS: QUETIAPINE FUMARATE 25MG TABLET PO SCH (20:46)
[2022-10-24] MEDS: SENNOSIDES/DOCUSATE SOD 8.6/50MG TABLET PO SCH (21:00)
[2022-10-25] VITALS: BP 121/82
[2022-10-25 04:00] VITALS: BP 129/79
[2022-10-25] MEDS: BLOOD SUGAR DIAGNOSTIC STRIP TEST SCH ×4 (06:00→17:18)
[2022-10-25] MEDS: INSULIN LISPRO 100 UNITS/ML SUBCUT SCH ×4 (06:00→17:17)
[2022-10-25] MEDS: PANTOPRAZOLE 40MG DR TABLET PO SCH (06:42)
[2022-10-25 08:00] VITALS: BP 102/60
[2022-10-25] MEDS: ENOXAPARIN 100MG/ML SYR SUBCUT SCH (09:00)
[2022-10-25] MEDS: MULTIVITAMINS,THER W-MINERALS TABLET PO SCH (09:07)
[2022-10-25] MEDS: LEVETIRACETAM 500MG TABLET PO SCH (09:07)
[2022-10-25] MEDS: FOLIC ACID 1MG TABLET PO SCH (09:07)
[2022-10-25] MEDS: FUROSEMIDE 40MG TABLET PO SCH (09:07)
[2022-10-25] MEDS: ARIPIPRAZOLE 5MG TABLET PO SCH (09:08)
[2022-10-25] MEDS: PANTOT AC/MIN OIL/PET HY-PHL OINT (AQUAPHOR) TOP SCH (09:12)
[2022-10-25 12:00] VITALS: BP 120/86
[2022-10-25 20:21] LABS: PROTHROMBIN TIME 10.8 sec (9.6-11.0)
== END 2022-10-25 20:47 | DRG 720 ==
LOC: ER 16:13 → CVICU 10-01 01:18 → EDBEDREQSVC 10-01 02:09 → 5EST 10-09 23:57 → 4WST 10-16 18:48 → 6EST 10-25 15:22
PROVIDERS: ADMIT Family Medicine Adult Medicine; ATTEND Family Medicine Adult Medicine
PROC: 5A1955Z Respiratory Ventilation, Greater than 96 Consecutive Hours (ICD-10-PCS; principal; 2022-10-01)
PROC: 0BH17EZ Insertion of Endotracheal Airway into Trachea, Via Natural or Artificial Opening (ICD-10-PCS; 2022-10-01)
PROC: 4A00X4Z Measurement of Central Nervous Electrical Activity, External Approach (ICD-10-PCS; 2022-10-03)
PROC: 02HV33Z Insertion of Infusion Device into Superior Vena Cava, Percutaneous Approach (ICD-10-PCS; 2022-10-04)
PROC: B548ZZA Ultrasonography of Superior Vena Cava, Guidance (ICD-10-PCS; 2022-10-04)
PROC: 02HV33Z Insertion of Infusion Device into Superior Vena Cava, Percutaneous Approach (ICD-10-PCS; 2022-10-07)
PROC: B548ZZA Ultrasonography of Superior Vena Cava, Guidance (ICD-10-PCS; 2022-10-07)
PROC: 0DB78ZX Excision of Stomach, Pylorus, Via Natural or Artificial Opening Endoscopic, Diagnostic (ICD-10-PCS; 2022-10-10)
PROC: 02HV33Z Insertion of Infusion Device into Superior Vena Cava, Percutaneous Approach (ICD-10-PCS; 2022-10-12)
PROC: B548ZZA Ultrasonography of Superior Vena Cava, Guidance (ICD-10-PCS; 2022-10-12)
DX: A41.01 Sepsis due to Methicillin susceptible Staphylococcus aureus (principal); R65.21 Severe sepsis with septic shock; J69.0 Pneumonitis due to inhalation of food and vomit; K85.90 Acute pancreatitis without necrosis or infection, unspecified; J96.01 Acute respiratory failure with hypoxia; J96.02 Acute respiratory failure with hypercapnia; J44.0 Chronic obstructive pulmonary disease with (acute) lower respiratory infection; E87.29 Other acidosis; E46 Unspecified protein-calorie malnutrition; N17.9 Acute kidney failure, unspecified; D69.6 Thrombocytopenia, unspecified; K76.0 Fatty (change of) liver, not elsewhere classified; D64.9 Anemia, unspecified; I12.9 Hypertensive chronic kidney disease with stage 1 through stage 4 chronic kidney disease, or unspecified chronic kidney disease; F10.129 Alcohol abuse with intoxication, unspecified; F17.210 Nicotine dependence, cigarettes, uncomplicated; K40.90 Unilateral inguinal hernia, without obstruction or gangrene, not specified as recurrent; K57.30 Diverticulosis of large intestine without perforation or abscess without bleeding; K80.20 Calculus of gallbladder without cholecystitis without obstruction; K82.8 Other specified diseases of gallbladder; N18.9 Chronic kidney disease, unspecified; I48.0 Paroxysmal atrial fibrillation; K29.70 Gastritis, unspecified, without bleeding; N39.0 Urinary tract infection, site not specified; B85.2 Pediculosis, unspecified; G40.909 Epilepsy, unspecified, not intractable, without status epilepticus; E87.0 Hyperosmolality and hypernatremia; Z78.1 Physical restraint status; Z59.00 Homelessness unspecified; Z78.9 Other specified health status; Z91.199 Patient's noncompliance with other medical treatment and regimen due to unspecified reason; Z68.27 Body mass index [BMI] 27.0-27.9, adult
CPT/HCPCS: 31500; 36415; 36573; 36600; 70551; 71045; 71250; 74018; 74176; 76700; 76770; 80048; 80053; 80061; 80076; 80202; 80305; 80320; 81003; 82140; 82150; 82270; 82375; 82436; 82550; 82607; 82728; 82746; 82805; 82962; 83036; 83540; 83550; 83605; 83735; 83880; 83930; 83935; 84100; 84133; 84134; 84145; 84300; 84439; 84443; 84478; 84481; 84484; 85014; 85018; 85025; 85044; 85049; 85379; 85384; 86038; 86160; 86705; 86709; 86803; 86850; 86900; 86920; 87070; 87077; 87186; 87340; 87389; 87426; 88305; 92610; 93005; 93306; 93970; 94003; 94640; 95816; 97162; 97164; 97166; 99285; C1725; C9113; C9803; J0690; J0692; J0696; J1200; J1265; J1642; J1650; J1815; J1885; J1940; J1953; J2060; J2704; J2930; J3010; J3370; J3411; J3480; J3490; J7030; J7042; J7060; J7070; J7608; P9016; Q0163; A4315; G0480

== ENCOUNTER 2023-02-02 11:17 | Emergency (ER) | payer MEDICAID ==
[~2023-02-02] VITALS: Ht 175.3 cm; Wt 82.0 kg
[~2023-02-02 11:17] MED LIST changes: +ABIL5 PO; -ACET-2708 PO; +APIX5TAB MT; +FURO40TA5 PO; +KEPP500 PO; +PANT40TA51 PO; +QUET25TA PO; +TRAZ-251 PO
[2023-02-02 11:18] VITALS: BP 151/98; PULSE 90; RESP 18; TEMP 98.5; O2SAT 98
[2023-02-02 13:01] LABS: CLARITY URINE CLEAR (CLEAR); COLOR URINE YELLOW (YELLOW); GLUCOSE URINE NEGATIVE (NEGATIVE); KETONES URINE NEGATIVE (NEGATIVE); LEUKOCYTE ESTERASE URINE NEGATIVE (NEGATIVE); NITRITE URINE NEGATIVE (NEGATIVE); OCCULT BLOOD URINE NEGATIVE (NEGATIVE); PH URINE 5.5 (4.5-8.0); PROTEIN URINE NEGATIVE (NEGATIVE); SPECIFIC GRAVITY URINE 1.002 (1.005-1.030); UROBILINOGEN URINE 0.2 E.U./dL (0.2-1.0)
[2023-02-02 13:39] LABS: *AMPHETAMINES SCREEN URINE NEGATIVE (NEGATIVE); *BARBITURATES SCREEN URINE NEGATIVE (NEGATIVE); *BENZODIAZEPINES SCREEN URINE NEGATIVE (NEGATIVE); *COCAINE SCREEN URINE NEGATIVE (NEGATIVE); CANNABINOID URINE SCREEN NEGATIVE (NEGATIVE); ECSTASY MDMA SCREEN URINE NEGATIVE (NEGATIVE); METHADONE URINE SCREEN NEGATIVE (NEGATIVE); OPIATES URINE SCREEN NEGATIVE (NEGATIVE); PHENCYCLIDINE URINE SCREEN NEGATIVE (NEGATIVE)
[2023-02-02 13:47] LABS: HEMATOCRIT. 36.4 % (42.0-52.0); HEMOGLOBIN. 11.8 g/dL (14.0-18.0); MEAN CORPUSCULAR HEMOGLOBIN 26.3 pg (28.0-32.0); MEAN CORPUSCULAR HGB CONC 32.4 g/dL (31.0-37.0); MEAN CORPUSCULAR VOLUME 81.1 fL (80.0-94.0); PLATELET 146 x1000/uL (130-400); RED BLOOD CELL COUNT 4.48 mill/uL (4.7-6.1); RED CELL DISTRIBUTION WIDTH 27.1 % (11.6-14.6); WHITE BLOOD COUNT 5.2 x1000/uL (4.5-11.0)
[2023-02-02 13:49] LABS: DIFFERENTIAL COMMENT 1
[2023-02-02 14:16] LABS: ANISOCYTOSIS 2+; MICROCYTOSIS 1+; PLATELET ESTIMATE NORMAL
[2023-02-02 14:28] LABS: CHLORIDE 108 mEq/L (98-107); INDEX HEMOLYSI 1 (1-3); INDEX ICTERIC 1 (1-4); INDEX LIPEMIC 1 (1-3); POTASSIUM 3.7 mEq/L (3.5-5.1); SODIUM 140 mEq/L (136-145)
[2023-02-02 14:45] LABS: ALANINE AMINOTRANSFERASE 32 IU/L (13-61); ALBUMIN 3.5 g/dL (3.4-5.0); ASPARTATE AMINOTRANSFERASE 38 IU/L (15-37); BILIRUBIN TOTAL 0.3 mg/dL (0.1-1.0); CALCIUM 8.6 mg/dL (8.5-10.1); CARBON DIOXIDE 23 mEq/L (21-32); CREATININE 0.8 mg/dL (0.6-1.3); ETHANOL BLOOD 322 mg/dL (-10); PROTEIN TOTAL 7.7 g/dL (6.0-8.3); UREA NITROGEN BLOOD 7 mg/dL (7-21)
[2023-02-02 15:31] LABS: GLUCOSE 68 mg/dL (70-105)
[2023-02-03] MEDS ORDERED: TOPUD MT (03:02)
== END 2023-02-02 17:53 | disposition home or self-care (01) ==
LOC: ER 11:29
DX: F10.229 Alcohol dependence with intoxication, unspecified (principal); Y90.8 Blood alcohol level of 240 mg/100 ml or more; F12.10 Cannabis abuse, uncomplicated; Z79.899 Other long term (current) drug therapy
CPT/HCPCS: 36415; 80053; 80305; 80320; 81003; 85025; 99283; G0480

== ENCOUNTER 2023-02-03 01:11 | Emergency (ER) | payer MEDICAID ==
[~2023-02-03] VITALS: Ht 172.7 cm; Wt 77.0 kg
[2023-02-03 01:14] VITALS: TEMP 98.3; O2SAT 98
[2023-02-03 01:19] VITALS: BP 152/91; PULSE 79; RESP 16
[2023-02-03] MEDS ORDERED: TOPUD MT (03:02)
== END 2023-02-03 03:28 | disposition home or self-care (01) ==
LOC: ER 01:11
DX: R26.2 Difficulty in walking, not elsewhere classified (principal); F10.239 Alcohol dependence with withdrawal, unspecified; F12.10 Cannabis abuse, uncomplicated; Z79.899 Other long term (current) drug therapy; Z00.00 Encounter for general adult medical examination without abnormal findings
CPT/HCPCS: 99281; Z7610